=== PATIENT | male | born 1970 | race American Indian/Alaskan Native ===

== ENCOUNTER 2024-10-24 00:02 | Emergency (ER) | payer OTHER ==
--- OUTSIDE RECORDS SUMMARY | 2024-10-24 00:09 | XMS REPORT | Continuity of Care Document ---
Author Name Unknown Address [address] [place] [address] [facility] Address [address] [place] [address] Care Team Providers Care Medical Staff Services Coordinator Name Role Phone Monster Radford DO Primary Care Physician [phone] NINA ZAMORA Attending Clinician Unavailable MONSTER RADFORD Attending Clinician Unavailable JORGE WINKLER Attending Clinician Unaallison Winkler MD, Jorge Baldwin Attending Clinician + SHAWN BUSTAMANTE Attending Clinician UnavailRACHAEL Fritz Attending Clinician Unavailable MD MARIELA Attending Clinician Unavailab le LAB90 Attending Clinician Unavailable ELIZABETHPAXTON FARFAN-ANTHONY Attending Clinician Unavailable Gian RAMIREZ, Carolina Chowdary Attending Clinician Unavail able DHARMESH HARTMANN Attending Clinician Unavailable Essie Beaver MD Attending Clinician [phone] Dharmesh Hartmann MD Attending Clinician [phone] Attending Clinician Unavailable SONNY VENTURA Attending Clinician Unavailable PRINCE ESPINOZA Attending Clinician Jessica SILVANA Garrett Attending Clinician Unavailable Hayley Attending Clinician Unavailable Romel ARCHIBALD, Amy Wei Attending Clinician [phone] DHARMESH HARTMANN Admitting Clinician Unavailable Dharmesh Hartmann MD Admitting Clinician [phone] Hayley Admitting Clinician Unavailable Payers Payer Name Policy Type Policy Number Effective Date Expirati on Date Source UBALDO Myles [facility] 94 [id number] 2024 00:00:00 BE Olivas MAYRA MONTGOMERY COMM [id number] 2024 00:00:00 [employer] [facility] [id number] Problems Condition Name Condition Details Condition Category Status Onset Date Resolution Date Last Treatment Date Treating Clinician Comments Source Testicular infarct Testicular infarct Disease Active 2022-07 00:00: 00 [facility] Pain in right testicle Pain in right testicle Disease Active 2022-07 00:00: 00 [facility] Prediabete s Prediabete s Disease Active 5-03 00:00: 00 Mayra Seybold - Externa l RLS (restless legs syndrome) RLS (restless legs syndrome) Disease Active 4-05 00:00: 00 Mayra Seybold - Externa l DDD (degenerat lori disc disease), cervical DDD (degenerat lori disc disease), cervical Disease Active 3-15 00:00: 00 Mayra Seybold - Externa l Neck pain Neck pain Disease Active 2-15 00:00: 00 Mayra Seybold - Externa l Snoring Snoring Disease Active 2-15 00:00: 00 Mayra Seybold - Externa l Seasonal allergic rhinitis due to pollen Seasonal allergic rhinitis due to pollen Disease Active 2-15 00:00: 00 Mayra Seybold - Externa l Acute bilateral low back pain without sciatica Acute bilateral low back pain without sciatica Disease Active 2-15 00:00: 00 Mayra Seybold - Externa l No known active problems No known active problems Disease [facility] Allergies, Adverse Reactions, Alerts Allergy Name Allergy Type Status Severity Reaction(s) Onset Date Inactive Date Treating Clinician Comments Source NO KNOWN ALLERGIE S Drug Class Active [facility] Social History Social Habit Start Date Stop Date Quantity Comments Source Gender identity 2023-10-17 15:40:59 Identifies as male gender (finding) [facility] Exposure to SARS-CoV-2 (event) Not sure [facility] History of Occupation Mayra Montgomery - External History of tobacco use Smokes tobacco daily [facility] Sexual orientation [facility] Alcoholic beverage intake 2024-10-17 00:00:00 2024-10-17 00:00:00 Ex-drinker (finding) Mayra Montgomery - External Cigarettes smoked current (pack per day) - Reported 2024-07-04 00:00:00 2024-07-04 00:00:00 Mayra Montgomery - External Cigarette pack-years 2024-07-04 00:00:00 2024-07-04 00:00:00 Mayra Montgomery - External Tobacco use and exposure 2024-07-04 00:00:00 2024-07-04 00:00:00 Smokeless tobacco non-user Mayra Montgomery - External Alcohol intake 2023-08-05 00:00:00 2023-08-05 00:00:00 Ex-drinker (finding) Mayra Montgomery - External History of Social function 2023-06-23 00:00:00 2023-06-23 00:00:00 [facility] Education 2022-09-10 00:00:00 2022-09-10 00:00:00 16 Mayra Montgomery - External Sex 2022-07-24 16:03:44 2022-07-24 16:03:44 Male (finding) Mayra Montgomery - External Sex assigned at 1970 00:00:00 1970 00:00:00 Mayra Montgomery - External Smoking Status Start Date Stop Date Source Smokes tobacco daily 2024-07-04 00:00:00 Mayra Montgomery - External Tobacco smoking consumption unknown [facility] Medications Ordered Medication Name Filled Medication Name Start Date Stop Date Current Medication? Ordering Clinician Indication Dosage Frequency Signature (SIG) Comments Components Source Gabapentin 600 MG oral Tablet 10-17 00:00: 00 Yes [id number] 600mg Q.5D Take 1 tablet (600 mg total) by mouth 2 times daily. Mayra Olivas Externa l Etodolac 400 MG oral Tablet 09-30 00:00: 00 Yes 400mg Q.5D Take 1 tablet (400 mg total) by mouth 2 times daily as needed. Mayra chowdary cyclobenzap rine (Flexeril) 10 MG tablet cyclobenzap rine (Flexeril) 10 MG tablet 09-30 00:00: 00 Yes 10mg Q.5D Take 1 tablet by mouth 2 times a day as needed for muscle spasms. Angy Car topiramate (Topamax) 50 MG tablet topiramate (Topamax) 50 MG tablet 09-23 00:00: 00 Yes 50mg Q12H Take 1 tablet by mouth in the morning and 1 tablet in the evening. Angy Car Pregabalin (Lyrica) 100 MG oral Capsule 09-07 00:00: 00 10-17 00:00 :00 No [id number] 100mg Q.5D Take 1 capsule (100 mg total) by mouth 2 times daily No driving. No alcohol. No operating machinery. . Mayra chowdary methylPREDN ISolone (Medrol) 4 MG oral Tablet Therapy Pack 2023-07 00:00: 00 Yes [id number] Take is instructed on pack. Mayra chowdary Gabapentin 300 MG oral Capsule 2023-07 00:00: 00 09-07 00:00 :00 No [id number] 300mg Take 1 capsule (300 mg total) by mouth at bedtime. Mayra chowdary Gabapentin 100 MG oral Capsule 2023-07 00:00: 00 Yes [id number] 100mg Q.5D Take 1 capsule (100 mg total) by mouth 2 times daily as needed (pain). Mayra chowdary Diclofenac Sodium 50 MG oral Tablet Delayed Response 2023-07 00:00: 00 Yes [id number] 50mg Q.5D Take 1 tablet (50 mg total) by mouth 2 times daily as needed (pain). Mayra chowdary Methocarbam ol 750 MG oral Tablet 2023-07 00:00: 00 Yes [id number] 750mg QD Take 1 tablet (750 mg total) by mouth daily as needed (muscle cramp). Mayra chowdary dexAMETHaso ne (DECADRON) 4 MG oral tablet 2023-07 2-03 00:00: 00 07-04 00:00 :00 No Mayra chowdary HYDROcodone -Acetaminop hen (NORCO) 5-325 MG oral Tablet 2023-07 00:00: 00 07-04 00:00 :00 No Mayra chowdary Ibuprofen (MOTRIN) 800 MG oral Tablet 2023-07 00:00: 00 07-04 00:00 :00 No Mayra chowdary Fexofenadin e (GALDYS) 180 MG oral Tablet 02-14 00:00: 00 07-04 00:00 :00 No [id number] 180mg QD Take 1 tablet (180 mg total) by mouth daily. Mayra chowdary hydrOXYzine HCl 25 MG oral Tablet 02-14 00:00: 00 03-17 04:59 :00 No [id number] 25mg Q.25D Take 1 tablet (25 mg total) by mouth every 6 hours as needed for itching. Mayra chowdary enoxaparin (LOVENOX) injection 40 mg 2022-07 15:00: 00 Yes 40mg 40 mg, Subcutaneo us, DAILY, First dose on Thu06/23/23 at 0900, Until Discontinu ed, Routine [facility] ibuprofen 200 mg tablet 2022-07 12:52: 23 Yes 200mg Take 1 tablet by mouth every 6 (six) hours as needed for Pain (scale 4-6). Takes 2 tablets [facility] naproxen (NAPROSYN) tablet 500 mg 2022-07 11:30: 00 06-23 10:35 :00 No 500mg 500 mg, Oral, ONCE, 1 dose, On Thu06/23/23 at 0530, Routine [facility] nicotine (NICODERM) 14 mg/24 hr patch 1 Patch 2022-07 03:00: 00 Yes 1{patch } 1 Patch, Topical, Administer over 24 Hours, Q24H, First dose on Thu06/22/23 at 2100, Until Discontinu ed, Routine [facility] NaCl 0.9% (NS) IV infusion 1,000 mL 2022-07 01:30: 00 Yes 1000mL at 100 mL/hr, IV Infusion, CONTINUOUS , Starting on Thu06/22/23 at 1930, Until Discontinu ed, Routine [facility] ondansetron (ZOFRAN (PF)) injection 4 mg 2022-07 01:27: 12 Yes 4mg 4 mg, Slow IV Push, Q6HPRN, Starting on Thu06/22/23 at 1927, Until Discontinu ed, Routine, Nausea and Vomiting (N/V) [facility] morpHINE (4 mg/mL) injection 4 mg 2022-07 01:27: 10 06-24 01:26 :10 No 4mg 4 mg, Slow IV Push, Q4HPRN, Starting on Thu06/22/23 at 1927, Until Thu06/23/23 at 1926, Routine, Pain (scale 7-10) [facility] acetaminoph en-codeine (TYLENOL #3) 300-30 mg tablet 1 tablet 2022-07 01:27: 08 06-25 01:26 :08 No 1{tbl} 1 tablet, Oral, Q6HPRN, Starting on Thu06/22/23 at 1927, Until Thu06/24/23 at 192, Routine, Pain (scale 4-6) [facility] acetaminoph en (TYLENOL) tablet 650 mg 2022-07 01:27: 07 Yes 650mg 650 mg, Oral, Q6HPRN, Starting on Thu06/22/23 at 1927, Until Discontinu ed, Routine, Pain (scale 1-3) [facility] sulfamethox azole-trime thoprim (BACTRIM DS) 800-160 mg per tablet 2022-07 00:00: 00 07-04 05:59 :00 No [id number] 1{tbl} Take 1 tablet by mouth in the morning and 1 tablet in the evening. Do all this for 10 days. [facility] cefTRIAXone (ROCEPHIN) 1,000 mg in NaCl 0.9% (NS) 100 mL MINI-BAG 2022-07 22:15: 00 06-22 23:50 :00 No 1000mg 1,000 mg, IV Piggyback, ONCE, 1 dose, On Thu06/22/23 at 1615, Administer over 30 Minutes, 100 mL
Reas on for Anti-Infec tive: Empiric Therapy for Suspected Infection< br>Empiric Therapy Site: Urine
D uration of therapy: Once (ED) [facility] iopamidol (ISOVUE 370-500 mL) injection 75 mL 2022-07 20:45: 00 06-22 20:45 :00 No [id number] 75mL 75 mL, Intravenou s, ONCE, 1 dose, On Thu06/22/23 at 1445, Routine [facility] Tizanidine HCl 2 MG oral Tablet -14 00:00: 00 07-04 00:00 :00 No [id number] 2mg QD Take 1 tablet (2 mg total) by mouth nightly as needed for muscle spasms Mayra Montgomery - Externa l Diclofenac Sodium 75 MG oral Tablet Delayed Response -14 00:00: 00 07-04 00:00 :00 No [id number] 75mg Q.5D Take 1 tablet (75 mg total) by mouth 2 times daily as needed Mayra Montgomery - Externa l Gabapentin 100 MG oral Capsule 4-05 00:00: 00 Yes [id number] 100mg Q.5D Take 1 capsule (100 mg total) by mouth 2 times daily as needed Mayra Montgomery - Externa l Meloxicam 15 MG oral Tablet 3-15 00:00: 00 Yes [id number] 15mg QD Take 1 tablet (15 mg total) by mouth daily as needed for pain Mayra Montgomery - Externa l Loratadine (Claritin Reditabs) 10 MG oral TABLET DISPERSIBLE 2-15 00:00: 00 07-04 00:00 :00 No [id number] 10mg QD Take 1 tablet (10 mg total) by mouth daily Mayra chowdary FLUTICASONE PROPIONATE, NASAL, 50 MCG/ACT nasal Suspension 09-10 00:00: 00 07-04 00:00 :00 No [id number] 50ug QD Use 1 spray (50 mcg total) in each nostril daily Mayra chowdary Sildenafil Citrate (Viagra) 25 MG oral Tablet 09-10 00:00: 00 07-04 00:00 :00 No [id number] 100mg QD Take 4 tablets (100 mg total) by mouth daily as needed Mayra chowdary methylPREDN ISolone 4 mg tablets 03-03 00:00: 00 Yes [id number] Take by mouth SEE-INSTRU CTIONS. follow package directions [facility] methocarbam oL (ROBAXIN) tablet 1,500 mg 03-02 19:15: 00 03-02 18:13 :00 No 1500mg 1,500 mg, Oral, ONCE, 1 dose, 03/02/21 at 1415, Routine [facility] ketorolac (TORADOL) injection 30 mg 03-02 19:15: 00 03-02 18:13 :00 No 30mg 30 mg, Intramuscu lar, ONCE, 1 dose, 03/02/21 at 1415, [facility]ANE[facility] : AMY URENA [facility] HYDROcodone -acetaminop hen (NORCO) 10-325 mg tablet 1 tablet 03-02 19:15: 00 03-02 18:13 :00 No 1{tbl} 1 tablet, Oral, ONCE, 1 dose, 03/02/21 at 1415, Routine [facility] dexamethaso ne (DECADRON PHOSPHATE) injection 10 mg 03-02 19:15: 00 03-02 18:13 :00 No 10mg 10 mg, Intramuscu lar, ONCE, 1 dose, 03/02/21 at 1415, Routine [facility] naproxen 375 mg tablet 03-02 00:00: 00 03-10 04:59 :00 No [id number] 375mg Take 1 tablet by mouth 3 (three) times daily with meals for 7 days. [facility] traMADoL 50 mg tablet 03-02 00:00: 00 03-10 04:59 :00 No [id number] 50mg Take 1 tablet by mouth every 6 (six) hours as needed for Pain (scale 7-10) for up to 7 days. Indication s: acute pain [facility] methocarbam oL 750 mg tablet 03-02 00:00: 00 03-07 04:59 :00 No [id number] 1500mg Take 2 tablets by mouth 4 (four) times daily for 4 days. [facility] doxycycline hyclate 100 mg capsule 03-02 00:00: 00 03-02 00:00 :00 No 100mg Take 1 capsule by mouth 2 (two) times daily for 12 days. [facility] metroNIDAZO LE 500 mg tablet 03-02 00:00: 00 03-02 00:00 :00 No 500mg Take 1 tablet by mouth 2 (two) times daily for 12 days. [facility] chlorhexidi ne 0.12 % mouthwash 03-02 00:00: 00 03-02 00:00 :00 No 15mL Swish and spit out 15 mL 2 (two) times daily. [facility] pregabalin (Lyrica) 75 MG capsule pregabalin (Lyrica) 75 MG capsule 05 00:00: 00 Yes 75mg 75 mg = 1 cap, PO, Bedtime, 0 Refill(s) Angy Enamorado Epic Bromfed DM 2 mg-30 mg-10 mg/5 mL oral syrup Take 10 mL every 6 hours by oral route for 7 days. Bromfed DM 2 mg-30 mg-10 mg/5 mL oral syrup Take 10 mL every 6 hours by oral route for 7 days. No 10mL Q6H Bromfed DM 2 mg-30 mg-10 mg/5 mL oral syrup Take 10 mL every 6 hours by oral route for 7 days. [facility] nystatin 100,000 unit/mL oral suspension Take 5 mL 4 times a day by oral route. nystatin 100,000 unit/mL oral suspension Take 5 mL 4 times a day by oral route. No 5mL QID nystatin 100,000 unit/mL oral suspension Take 5 mL 4 times a day by oral route. [facility] amoxicillin 875 mg tablet Take 1 tablet every 12 hours by oral route for 10 days. amoxicillin 875 mg tablet Take 1 tablet every 12 hours by oral route for 10 days. No 1 Q12H amoxicilli n 875 mg tablet Take 1 tablet every 12 hours by oral route for 10 days. [facility] Vital Signs Vital Name Observation Time Observation Value Comments S ource Body height 2024-10-17 19:02:00 170.2 cm Shannan ey Seybold - External Body weight 2024-10-17 19:02:00 89.812 kg Shannan ey Seybold - External BMI 2024-10-17 19:02:00 31.01 kg/m2 Shannan ey Seybold - External Body height 2024-09-07 19:23:00 170.2 cm Shannan ey Seybold - External Body weight 2024-09-07 19:23:00 94.348 kg Shannan ey Seybold - External BMI 2024-09-07 19:23:00 32.58 kg/m2 Shannan ey Seybold - External Body height 2024-07-13 14:07:00 170.2 cm Shannan ey Seybold - External Body weight 2024-07-13 14:07:00 93.441 kg Shannan ey Seybold - External BMI 2024-07-13 14:07:00 32.26 kg/m2 Shannan ey Seybold - External Systolic blood pressure 2024-07-04 16:34:00 132 mm[Hg] Mayra Carcamoo ld - External Diastolic blood pressure 2024-07-04 16:34:00 78 mm[Hg] Mayra Kunz ld - External Heart rate 2024-07-04 16:34:00 96 /min Kelse y Seybold - External Body temperature 2024-07-04 16:34:00 36.89 Nahomy Marya Seybold - External Respiratory rate 2024-07-04 16:34:00 18 /min Mayra Seybold - External Body height 2024-07-04 16:34:00 170.2 cm Shannan ey Seybold - External Body weight 2024-07-04 16:34:00 91.627 kg Shannan ey Seybold - External BMI 2024-07-04 16:34:00 31.64 kg/m2 Shannan islas Seybold - External Oxygen saturation in Arterial blood by Pulse oximetry 2024-07-04 16:34:00 98 /min Mayra Lewisybo ld - External Systolic blood pressure 2023-08-05 20:58:00 120 mm[Hg] Mayra Lewisybo ld - External Diastolic blood pressure 2023-08-05 20:58:00 84 mm[Hg] Mayra Lewisybo ld - External Heart rate 2023-08-05 20:58:00 89 /min Rosalba y Seybold - External Body temperature 2023-08-05 20:58:00 36.72 Nahomy Mayra Seybold - External Respiratory rate 2023-08-05 20:58:00 16 /min Mayra Lewisybold - External Body height 2023-08-05 20:58:00 170.2 cm Shannan islas Seybold - External Body weight 2023-08-05 20:58:00 94.439 kg Shannan islas Seybold - External BMI 2023-08-05 20:58:00 32.61 kg/m2 Shannan islas Seybold - External Oxygen saturation in Arterial blood by Pulse oximetry 2023-08-05 20:58:00 97 /min Mayra Lewisybo ld - External Systolic blood pressure 2023-06-23 17:12:00 117 mm[Hg] [facility] Diastolic blood pressure 2023-06-23 17:12:00 80 mm[Hg] [facility] Heart rate 2023-06-23 17:12:00 86 /min [facility] Body temperature 2023-06-23 17:12:00 36.78 Nahomy [facility] Respiratory rate 2023-06-23 17:12:00 18 /min [facility] Oxygen saturation in Arterial blood by Pulse oximetry 2023-06-23 17:12:00 96 /min [facility] Body height 2023-06-22 18:39:00 170.2 cm [facility] Body weight 2023-06-22 18:39:00 81.647 kg [facility] BMI 2023-06-22 18:39:00 28.19 kg/m2 [facility] Systolic blood pressure 2023-02-18 19:44:00 132 mm[Hg] Mayra Seybo ld - External Diastolic blood pressure 2023-02-18 19:44:00 76 mm[Hg] Mayra Seybo ld - External Heart rate 2023-02-18 19:44:00 81 /min Kelse y Seybold - External Body temperature 2023-02-18 19:44:00 36.61 Nahomy Mayra Seybold - External Respiratory rate 2023-02-18 19:44:00 14 /min Mayra Seybold - External Body height 2023-02-18 19:44:00 170.2 cm Shannan ey Seybold - External Body weight 2023-02-18 19:44:00 88.905 kg Shannan ey Seybold - External BMI 2023-02-18 19:44:00 30.70 kg/m2 Shannan ey Seybold - External Oxygen saturation in Arterial blood by Pulse oximetry 2023-02-18 19:44:00 99 /min Mayra Seybo ld - External Systolic blood pressure 2023-02-06 18:40:00 122 mm[Hg] Mayra Seybo ld - External Diastolic blood pressure 2023-02-06 18:40:00 85 mm[Hg] Mayra Seybo ld - External Heart rate 2023-02-06 18:40:00 88 /min Kelse y Seybold - External Body temperature 2023-02-06 18:40:00 36.61 Nahomy Mayra Seybold - External Respiratory rate 2023-02-06 18:40:00 14 /min Mayra Seybold - External Body height 2023-02-06 18:40:00 170.2 cm Shannan ey Seybold - External Body weight 2023-02-06 18:40:00 88.905 kg Shannan ey Seybold - External BMI 2023-02-06 18:40:00 30.70 kg/m2 Shannan ey Seybold - External Oxygen saturation in Arterial blood by Pulse oximetry 2023-02-06 18:40:00 99 /min Mayra Carcamoo ld - External Body weight 2022-11-26 19:45:00 88.905 kg Shannan ey Seybold - External BMI 2022-11-26 19:45:00 30.70 kg/m2 Shannan ey Seybold - External Oxygen saturation in Arterial blood by Pulse oximetry 2022-11-26 19:45:00 99 /min Mayra Seybo ld - External Systolic blood pressure 2022-11-26 19:45:00 118 mm[Hg] Mayra Seybo ld - External Diastolic blood pressure 2022-11-26 19:45:00 84 mm[Hg] Mayra Seybo ld - External Heart rate 2022-11-26 19:45:00 92 /min Kelse y Seybold - External Body temperature 2022-11-26 19:45:00 36.83 Nahomy Mayra Seybold - External Respiratory rate 2022-11-26 19:45:00 14 /min Mayra Seybold - External Body height 2022-11-26 19:45:00 170.2 cm Shannan ey Seybold - External Systolic blood pressure 2022-10-29 19:34:00 119 mm[Hg] Mayra Seybo ld - External Diastolic blood pressure 2022-10-29 19:34:00 70 mm[Hg] Mayra Seybo ld - External Heart rate 2022-10-29 19:34:00 83 /min Kelse y Seybold - External Body temperature 2022-10-29 19:34:00 36.39 Nahomy Mayra Seybold - External Respiratory rate 2022-10-29 19:34:00 14 /min Mayra Seybold - External Body height 2022-10-29 19:34:00 170.2 cm Shannan ey Seybold - External Body weight 2022-10-29 19:34:00 88.905 kg Shannan ey Seybold - External BMI 2022-10-29 19:34:00 30.70 kg/m2 Shannan ey Seybold - External Oxygen saturation in Arterial blood by Pulse oximetry 2022-10-29 19:34:00 99 /min Mayra Seybo ld - External Systolic blood pressure 2022-10-08 19:30:00 118 mm[Hg] Mayra Seybo ld - External Diastolic blood pressure 2022-10-08 19:30:00 76 mm[Hg] Mayra Seybo ld - External Heart rate 2022-10-08 19:30:00 98 /min Kelse y Seybold - External Body temperature 2022-10-08 19:30:00 36.39 Nahomy Mayra Seybold - External Respiratory rate 2022-10-08 19:30:00 14 /min Mayra Seybold - External Body height 2022-10-08 19:30:00 170.2 cm Shannan ey Seybold - External Body weight 2022-10-08 19:30:00 92.987 kg Shannan ey Seybold - External BMI 2022-10-08 19:30:00 32.11 kg/m2 Shannan ey Seybold - External Systolic blood pressure 2022-09-10 20:44:00 132 mm[Hg] Mayra Seybo ld - External Diastolic blood pressure 2022-09-10 20:44:00 85 mm[Hg] Mayra Seybo ld - External Heart rate 2022-09-10 20:44:00 86 /min Kelse y Seybold - External Body temperature 2022-09-10 20:44:00 36.61 Nahomy Mayra Seybold - External Respiratory rate 2022-09-10 20:44:00 14 /min Mayra Seybold - External Body height 2022-09-10 20:44:00 170.2 cm Shannan ey Seybold - External Body weight 2022-09-10 20:44:00 121.564 kg Shannan ey Seybold - External BMI 2022-09-10 20:44:00 41.97 kg/m2 Shannan ey Seybold - External Oxygen saturation in Arterial blood by Pulse oximetry 2022-09-10 20:44:00 99 /min Mayra Seybo ld - External BP Diastolic 2021-10-25 00:00:00 69 mm[Hg] [facility] Height 2021-10-25 00:00:00 68 [in_i] [facility] BMI (Body Mass Index) 2021-10-25 00:00:00 28.7 kg/m2 [facility] BP Systolic 2021-10-25 00:00:00 107 mm[Hg] [facility] Body Weight 2021-10-25 00:00:00 188.8 [lb_av] [facility] Systolic blood pressure 2021-03-02 19:00:00 110 mm[Hg] [facility] Diastolic blood pressure 2021-03-02 19:00:00 84 mm[Hg] [facility] Heart rate 2021-03-02 19:00:00 74 /min [facility] Respiratory rate 2021-03-02 19:00:00 16 /min [facility] Oxygen saturation in Arterial blood by Pulse oximetry 2021-03-02 19:00:00 94 /min [facility] Body temperature 2021-03-02 17:43:00 36.78 Nahomy [facility] Body weight 2021-03-02 17:43:00 90.719 kg [facility] Procedures Procedure Date / Time Performed Performing Clinician Source CBC WITHOUT DIFF 2023-06-23 10:22:00 Dharmesh Hartmann [facility] PROTHROMBIN TIME / INR 2023-06-23 10:22:00 Denver Hartmann [facility] ACTIVATED PARTIAL THRMPLAS DIANE 2023-06-23 10:22:00 Dharmesh Hartmann [facility] CT ABDOMEN PELVIS W CONTRAST 2023-06-22 19:49:50 Jigar Bennett [facility] US SCROTUM AND CONTENTS 2023-06-22 19:35:00 Elzbieta Bennett [facility] COMP. METABOLIC PANEL ([id number]) 2023-06-22 18:59:00 Jigar Bennett [facility] CBC WITH DIFF 2023-06-22 18:59:00 Jigar Bennett [facility] URINALYSIS 2023-06-22 18:59:00 [facility] CONSENT/REFUSAL FOR DIAGNOSIS AND TREATMENT 2023-06-22 18:31:32 Doctor Unassigned, [place] [facility] XR LUMBAR SPINE 2 VW 2021-03-02 18:49:55 Angella Urena [facility] NOTICE OF PRIVACY PRACTICES 2021-03-02 17:37:20 Doctor Unassigned, [place] [facility] CONSENT/REFUSAL FOR DIAGNOSIS AND TREATMENT 2021-03-02 17:32:16 Doctor Unassigned, [place] [facility] Encounters Start Date/Time End Date/Time Encounter Type Admission Type Attending [facility] Facility Care Department Encounter ID Source 2024-11-21 11:30:00 2024-11-21 11:30:00 Outpatient NINA ZAMORA [id number] [facility] 2024-10-20 00:00:00 2024-10-20 00:00:00 Outpatient MONSTER RADFORD [id number] [facility] [place] 2024-10-19 12:46:45 2024-10-19 12:46:45 Outpatient Elective JORGE WINKLER IEEPIC IEEPIC [id number] Angy chowdary Fei [facility] 2024-10-19 00:00:00 2024-10-19 00:00:00 Outpatient MONSTER RADFORD [id number] [facility] [place] 2024-10-17 14:00:00 2024-10-17 14:00:00 Outpatient ONAHNINA MAYRA HORAN [id number] [facility] [place] 2024-10-05 13:24:52 2024-10-05 15:08:20 Procedure Visit Elective LASHAE VEDAMED [facility] 1.2.840.114 350.1.13.70 8.2.7.2.686 [id number] Angy chowdary [facility] 2024-10-03 00:00:00 2024-10-03 00:00:00 Outpatient MAYRA HORAN [id number] [facility] [place] 2024-09-26 13:22:47 2024-09-26 14:08:33 Procedure Visit Elective SEWIELMICHEL AHMED [facility] 1.2.840.114 350.1.13.70 8.2.7.2.686 [id number] Angy Enamorado [facility] 2024-09-26 00:00:00 2024-09-26 00:00:00 Outpatient MAYRA HORAN [id number] [facility] [place] 2024-09-23 10:45:00 2024-09-23 11:22:03 [facility] 1.2.840.114 350.1.13.70 8.2.7.2.686 [id number] Angy Enamorado [facility] 2024-09-21 10:00:00 2024-09-21 10:00:00 Outpatient SHAWN BUSTAMANTE [id number] [facility] [place] 2024-09-20 00:00:00 2024-09-20 00:00:00 Outpatient MONSTER RADFORD [id number] [facility] [place] 2024-09-19 00:00:00 2024-09-19 00:00:00 Outpatient MAYRA HORAN [id number] [facility] 2024-09-16 14:45:00 2024-09-16 14:45:00 Outpatient MONSTER RADFORD [id number] [facility] [place] 2024-09-16 00:00:00 2024-09-16 00:00:00 Outpatient MONSTER RADFORD [id number] [facility] [place] 2024-09-13 16:15:00 2024-09-13 16:15:00 Outpatient MAYRA HORAN [id number] [facility] 2024-09-12 00:00:00 2024-09-12 00:00:00 Outpatient MAYRA HORAN [id number] [facility] 2024-09-09 00:00:00 2024-09-09 00:00:00 Outpatient MONSTER RADFORD [id number] [facility] 2024-09-07 13:45:00 2024-09-07 13:45:00 Outpatient NINA ZAMORA [id number] [facility] 2024-08-17 15:30:00 2024-08-17 15:30:00 Outpatient MONSTER RADFORD MAYRA HORAN [id number] [facility] 2024-07-22 00:00:00 2024-07-22 00:00:00 Outpatient RACHAEL BLOOD MAYRA HORAN [id number] [facility] 2024-07-18 00:00:00 2024-07-18 00:00:00 Outpatient MD MAYRA HADDAD [id number] [facility] 2024-07-15 00:00:00 2024-07-15 00:00:00 Outpatient MAYRA HORAN [id number] [facility] 2024-07-13 08:00:00 2024-07-13 08:00:00 Outpatient APRIL ZAMORAE MAYRA HORAN [id number] [facility] 2024-07-13 00:00:00 2024-07-13 00:00:00 Outpatient NOAH NINA MAYRA HORAN [id number] [facility] 2024-07-04 11:20:00 2024-07-04 11:20:00 Outpatient BEN MAYRA HORAN [id number] [facility] 2024-07-04 10:45:00 2024-07-04 10:45:00 Outpatient MONSTER RADFORD MAYRA HORAN [id number] [facility] 2024-03-25 14:15:00 2024-03-25 14:15:00 Outpatient MONSTER RADFORD MAYRA HORAN [id number] [facility] 2024-02-15 16:00:00 2024-02-15 16:00:00 Outpatient ANYI ELIZABETH MAYRA HORAN [id number] [facility] 2023-09-10 16:30:00 2023-09-10 16:30:00 Outpatient MAYRA HORAN [id number] [facility] 2023-09-10 16:00:00 2023-09-10 16:00:00 Outpatient MAYRA HORAN [id number] [facility] 2023-08-05 14:45:00 2023-08-05 14:45:00 Outpatient RACHAEL BLOOD [facility] HOR[facility] [id number] [facility] 2023-08-05 09:45:00 2023-08-05 09:45:00 Outpatient RACHAEL BLOOD [facility] [id number] [facility] 2023-06-24 00:00:00 2023-06-24 00:00:00 Transition of Care Carolina Springer 1.2.840.114 350.1.13.10 4.2.7.2.686 [id number] [facility] 2023-06-22 12:36:00 2023-06-23 12:52:00 Inpatient X [facility] [id number] [facility] 2023-06-22 12:36:00 2023-06-23 12:52:00 Hospital Encounter Essie Beaver [facility] ([facility] 1.2.840.114 350.1.13.10 4.2.7.2.686 [id number] [facility] 2023-05-06 15:15:00 2023-05-06 15:15:00 Outpatient [facility]ORA [id number] [facility] 2023-04-11 09:20:00 2023-04-11 09:20:00 Outpatient STEPHANY HORAN [id number] [facility] 2023-03-27 16:00:00 2023-03-27 16:00:00 Outpatient SONNY VENTURA [id number] [facility] 2023-03-18 00:00:00 2023-03-18 00:00:00 Outpatient MONSTER RADFORD [id number] [facility] 2023-03-17 14:00:00 2023-03-17 14:00:00 Outpatient MONSTER RADFORD [id number] [facility] [place] 2023-02-28 00:00:00 2023-02-28 00:00:00 Outpatient PREZAS, MONSTER HORAN MAYRA [id number] [facility] 2023-02-23 00:00:00 2023-02-23 00:00:00 Outpatient PREZAS, MONSTER HORAN MAYRA [id number] [facility] 2023-02-23 00:00:00 2023-02-23 00:00:00 Outpatient VENTURA, SONNY MAYRA MAYRA [id number] [facility] 2023-02-18 15:00:00 2023-02-18 15:00:00 Outpatient PREZAS, MONSTER MAYRA MAYRA [id number] [facility] 2023-02-06 14:00:00 2023-02-06 14:00:00 Outpatient PREZAS, MONSTER MAYRA MAYRA [id number] [facility] 2022-11-26 15:30:00 2022-11-26 15:30:00 Outpatient PREZAS, MONSTER MAYRA HORAN [id number] [facility] 2022-10-29 15:00:00 2022-10-29 15:00:00 Outpatient PREZAS, MONSTER MAYRA HORAN [id number] [facility] 2022-10-28 09:30:00 2022-10-28 09:30:00 Outpatient EAST, PRINCE MAYRA HORAN [id number] [facility] 2022-10-09 00:00:00 2022-10-09 00:00:00 Outpatient ARELLANO, SILVANA MAYRA HORAN [id number] [facility] 2022-10-08 14:45:00 2022-10-08 14:45:00 Outpatient PREZAS, MONSTER MAYRA HORAN [id number] [facility] 2022-10-06 00:00:00 2022-10-06 00:00:00 Outpatient PREZAS, MONSTER MAYRA HORAN [id number] [facility] 2022-10-04 08:15:00 2022-10-04 08:15:00 Outpatient LABMelinda HORAN [id number] [facility] 2022-09-18 00:00:2022-09-18 00:00:00 Outpatient PREZAS, MONSTER HORAN [id number] [facility] 2022-09-17 00:00:00 2022-09-17 00:00:00 Outpatient PREZAS, MONSTER HORAN [id number] [facility] 2022-09-16 15:30:00 2022-09-16 15:30:00 Outpatient MAYRA HORAN [id number] [facility] 2022-09-16 15:25:00 2022-09-16 15:25:00 Outpatient MAYRA HORAN [id number] [facility] 2022-09-10 14:45:00 2022-09-10 14:45:00 Outpatient PREZAS, MONSTER HORAN [id number] [facility] 2022-09-10 00:00:00 2022-09-10 00:00:00 Outpatient PREZAS, MONSTER HORAN [id number] [facility] 2021-10-25 07:31:00 2021-10-25 07:31:00 Outpatient Heath_Joaquín VFP VFP [id number] [facility] e 2021-10-25 00:00:00 2021-10-25 00:00:00 Lexus Joe, CURB[employer] SETTER: [address], [address], [place] [address] , Ph. VFP [place] - [facility] - _HOU_NSeth Nice ([facility] [id number] [facility] Pract[facility] e 2021-03-02 12:45:00 2021-03-02 15:43:00 Emergency Drever, Amy G [facility] 1.2.840.114 350.1.13.10 4.2.7.2.686 [id number] [facility] 2021-03-02 12:31:00 2021-03-02 12:31:00 Emergency X [facility] ERT [id number] [facility] Results Test Description Test Time Test Comments Results Result Co mments Source [facility] 10:48:57* Test Item Value Reference Range Interpretation Comme nts APTT Patient (test code = 3173-2) 35 See_Comment [Automated messa ge] The system which generated this result transmitted reference range: 26 - 36 Seconds. The reference range was not used to interpret this result as normal/abnormal. Lab Interpretation (test code = 35709-1) Normal [facility] WITHOUT [id number] 10:45:20* Test Item Value Reference Range Interpretation Comme nts WBC (test code = 6690-2) 11.25 See_Comment H [Automated message] The system which generated this result transmitted reference range: 4.20 - 10.70 10*3/?L. The reference range was not used to interpret this result as normal/abnormal. RBC (test code = 789-8) 4.82 See_Comment [Automated message] The system which generated this result transmitted reference range: 4.26 - 5.52 10*6/?L. The reference range was not used to interpret this result as normal/abnormal. HGB (test code = 718-7) 14.5 g/dL 12.2-16.4 HCT (test code = 4544-3) 42.4 % 38.4-49.3 MCH (test code = 785-6) 30.1 pg 26.1-32.7 MCV (test code = 787-2) 88.0 fL 81.7-95.6 MCHC (test code = 786-4) 34.2 g/dL 31.2-35.0 PLT (test code = 777-3) 225 See_Comment [Automated message] The system which generated this result transmitted reference range: 150 - 328 10*3/?L. The reference range was not used to interpret this result as normal/abnormal. MPV (test code = 37679-7) 11.5 fL 9.8-13.0 RDW-CV (test code = 788-0) 13.3 % 12.1-15.4 RDW-SD (test code = 98982-5) 43.1 fL 38.5-51.6 NRBC x10^3 (test code = 6390361551) See_Comment [Automated messa ge] The system which generated this result transmitted reference range: 10*3/?L. The reference range was not used to interpret this result as normal/abnormal. NRBC/100 WBC (test code = 5042019821) 0.0 See_Comment [Automated [employer]] The system which generated this result transmitted reference range: 0.0 - 10.0 /100 WBCs. The reference range was not used to interpret this result as normal/abnormal. IPF % (test code = 7641502101) Lab Interpretation (test code = 41404-9) Abnormal [facility] WITH [id number] 20:00:25* Test Item Value Reference Range Interpretation Comme nts WBC (test code = 6690-2) 16.33 See_Comment H [Automated [employer]] The system which generated this result transmitted reference range: 4.20 - 10.70 10*3/?L. The reference range was not used to interpret this result as normal/abnormal. RBC (test code = 789-8) 4.85 See_Comment [Automated [employer]] The system which generated this result transmitted reference range: 4.26 - 5.52 10*6/?L. The reference range was not used to interpret this result as normal/abnormal. HGB (test code = 718-7) 14.9 g/dL 12.2-16.4 HCT (test code = 4544-3) 43.5 % 38.4-49.3 MCV (test code = 787-2) 89.7 fL 81.7-95.6 MCH (test code = 785-6) 30.7 pg 26.1-32.7 MCHC (test code = 786-4) 34.3 g/dL 31.2-35.0 RDW-SD (test code = 46225-1) 43.4 fL 38.5-51.6 RDW-CV (test code = 788-0) 13.2 % 12.1-15.4 PLT (test code = 777-3) 242 See_Comment [Automated [employer]] The system which generated this result transmitted reference range: 150 - 328 10*3/?L. The reference range was not used to interpret this result as normal/abnormal. MPV (test code = 05399-5) 12.1 fL 9.8-13.0 NRBC/100 WBC (test code = 4912541593) 0.0 See_Comment [Automated me ssage] The system which generated this result transmitted reference range: 0.0 - 10.0 /100 WBCs. The reference range was not used to interpret this result as normal/abnormal. NRBC x10^3 (test code = 1996243361) See_Comment [Automated messa ge] The system which generated this result transmitted reference range: 10*3/?L. The reference range was not used to interpret this result as normal/abnormal. GRAN MAT (NEUT) % (test code = 770-8) 59.2 % IMM GRAN % (test code = 5725087184) 0.40 % LYMPH % (test code = 736-9) 23.1 % MONO % (test code = 5905-5) 14.8 % EOS % (test code = 713-8) 1.8 % BASO % (test code = 706-2) 0.7 % GRAN MAT x10^3(ANC) (test code = 0929619788) 9.67 10*3/uL 1.99-6.95 H IMM GRAN x10^3 (test code = 3901825014) 0.06 10*3/uL 0.00-0.06 LYMPH x10^3 (test code = 731-0) 3.77 10*3/uL 1.09-3.23 H MONO x10^3 (test code = 742-7) 2.42 10*3/uL 0.36-1.02 H EOS x10^3 (test code = 711-2) 0.29 10*3/uL 0.06-0.53 BASO x10^3 (test code = 704-7) 0.12 10*3/uL 0.01-0.09 H REACT LYMPHS (test code = 1533716351) Rare GIANT PLATELETS (test code = 5908-9) Present See_Comment A [Automated messa ge] The system which generated this result transmitted reference range: (none). The reference range was not used to interpret this result as normal/abnormal. PLT SATELLITISM (test code = 3576837629) Present See_Comment A [Automated me ssage] The system which generated this result transmitted reference range: (none). The reference range was not used to interpret this result as normal/abnormal. Lab Interpretation (test code = 84527-6) Abnormal [facility] (26086)2023-06-22 19:44:52* Test Item Value Reference Range Interpretation Comme nts NA (test code = 4742809295) 138 mmol/L 135-145 K (test code = 4579765999) 3.8 mmol/L 3.5-5.0 CL (test code = 4521670101) 103 mmol/L 98-108 CO2 TOTAL (test code = 7270034214) 27 mmol/L 23-31 AGAP (test code = 4246518284) 8 2-16 BUN (test code = 0540644233) 13 mg/dL 7-23 GLUCOSE (test code = 0499738308) 117 mg/dL 70-110 H CREATININE (test code = 0644578067) 0.73 mg/dL 0.60-1.25 TOTAL BILI (test code = 3240894221) 0.7 mg/dL 0.1-1.1 CALCIUM (test code = 7967133729) 9.2 mg/dL 8.6-10.6 T PROTEIN (test code = 6863136108) 7.9 g/dL 6.3-8.2 ALBUMIN (test code = 8068777544) 4.3 g/dL 3.5-5.0 ALK PHOS (test code = 7565994518) 97 U/L 34-122 ALTv (test code = 1742-6) 28 U/L 5-50 AST(SGOT) (test code = 0122080819) 27 U/L 13-40 eGFR (test code = 92396-0) 109.5 mL/min/1.73m2 CKD-EPI eGFR (2020). Assuming creatinine has been stable day-to-day for at least three months, the eGFR indicates Category G1 (>= 90 mL/min/1.73 m2) Lab Interpretation (test code = 17795-7) Abnormal [facility] L[facility] 2 [id number] 19:18:49Of the visualized spine, there is no evidence for fracture or subluxation. Indication: pain post lifting ? Comparison: None RL: 4209 ORDERING PHYSICIAN: XAVIER ?ROMEL TECHNIQUE: 2 radiographs including frontal and lateral views of the lumbarspine were obtained. FINDINGS: There are no fractures or subluxations. Vertebral body heights aremaintained. There is a prominent inferiorprojecting osteophytes at the inferior plate of the L3 vertebral body. Mildmultilevel anterior disc osteophytes. The paravertebral soft tissues are unremarkable. [facility], Radiant Results Inft User - 03/02/2021 2:19 PM CDT Indication: pain post lifting Comparison: NoneRL: 4209ORDERING PHYSICIAN: AMY URENA TECHNIQUE: 2 radiographs including frontal and lateral views of the lumbarspine were obtained. FINDINGS: There are no fractures or subluxations.Vertebral body heights are maintained. There jr prominent inferiorprojecting osteophytes at the inferior plate of the L3 vertebral body. Mildmultilevel anterior disc osteophytes.The paravertebral soft tissues are unremarkable.IMPRESSION Of the visualized spine, there is no evidence for fracture or subluxation. [facility] Notes Date/Time Note Provider Source Referral ID Status Reason Start Date Expiration Date Visits Re quested Visits Authorized [id number] [facility]* Jorge Winkler MD - 10/05/2024 1:15 PM CDT Images from the original note were not included. NEW CONSULT PATIENT NAME: Merna Hernandez MRN NUMBER: [id number] VISIT DATE: Saturday October 05, 2024 ASSESSMENT Diagnosis Plan1. Lumbar radiculitis 2. Herniated lumbar intervertebral disc 3. Facet arthritis of lumbosacral region Blood Thinners: None PLAN Pt not indicated Psych referral PT: yes, failed SURGERY: no MEDS:Opioids: opiods: NOT taking opiates Anti-epileptic drugs: Muscle Relaxant: NSAIDs (OTC or Rx): yes, failed Other: INJECTION HISTORY: no TODAY: Continue meds as deemed necessary per PCPPt declined spine surgery consult Pt declined Physical therapy Continue Topamax 50mg 1 PO q 12 Continue Lodine and Flexeril 50% relief with Left S1 TF ARIA x 1 09/23/24 No adverse events still in severe pain and inability to function w ADLS. Procedure done today : left TF Lumbar S1 CPT 91851 M54.16, M51.26Risk, side effects and benefits discussed with pt stop all NSAIDs and ASA Explained of the procedure to be performed. Risks and side effects discussed with pt Patient aware of all side effects and complications related to procedure to be performed including infection, bleeding, trauma to an internal structure including the spinal cord, causing any form of paralysis to any of the 4 extremities, pneumothorax, dural puncture CLEMENTS, aseptic and septic meningitis or sudden seizures vs related to intravascular injection of particulate substances. Medications list that conflict with the procedure given. OPERATIVE REPORT PATIENT NAME: Merna Hernandez MRN NUMBER: [id number] DATE OF SURGERY: Saturday October 05, 2024 PREOPERATIVE DIAGNOSIS: HNP wo myelopathyLumbar radiculitis Lumbar DDD Chronic lbp Lumbar facet joint dz POSTOPERATIVE DIAGNOSIS: Same as Preoperative Diagnosis OPERATION PERFORMED: Transforaminal epidural steroid injection, left S1 X-RAY: Fluoroscopy, spine Epidurography ANESTHESIA: Local Anesthesia INDICATIONS: Severe leg pain, Failed to achieve pain relief through conservative medical management, and Decreased ability to perform activities of daily living, sleep, work, and enjoy quality of life. PROCEDURE IN DETAIL: The 54 y.o. male patient was consented and was placed on blood pressure andpulse oximetry monitor. With the patient positioned prone on the fluoroscopic table, the skin was prepped with proper surgical aseptic technique and draped. In the anteroposterior view, the levels to be injected were identified under fluoroscopy. The C-arm was oblique in the coronal plane until the facet joint was delineated, approximately 20 degrees. Lidocaine 1% 4 cc in a 1.25-inch 27-gauge needle was used for skin local anesthesia, injecting it through the skin and subcutaneous tissue under strict aspiration technique. Under fluoroscopic guidance, a 22-gauge, 3.5 inches spinal needle was advanced and directed towards 6 o'clock position of the pedicle. In the lateral view, ideal placement of the needle was obtained with the tip in the upper mid portion of neural foramen. In the anteroposterior plane and under continuous fluoroscopy, approximately 1 cc of non-ionic, water-soluble contrast was injected to visualize the nerve root /corresponding lateral recess and for safety to make sure there was no vascular uptake. After negative aspiration for blood, approximately 2 cc of a mixture of 80mg DepoMedrol and 0.2% of preservative-free ropivicaine was slowly injected at each level. The patient experienced no paresthesia during the injection. Shortly after completion of the injection procedures, the patient reported improvement of pain symptoms. The patient recovered uneventfully. The fluoroscopic image was saved for the patient's medical record. COMPLICATIONS: None BLOOD LOSS: None Dr Jorge Winkler Significant education provided today on diagnosis, conservative management options, injections, and when surgical consultation is indicated. Patient agrees with current plan and management options as described below. Recommend routine physical Continue bowel management Patient instructed to continue with home exercise program. Patient instructed to go to nearest ER if developed any sudden weakness in the extremities or sudden bowel and/or bladder incontinence. Pt's chart and history were reviewed; physical exam have been updated with no significant changes of the above chronic pain noted. Chief complaint or Subjective: Area of pain : lumbar pain, radicular to, left-sided, buttock, calf, and foot What is the duration of your pain? constantly Kind of pain (quality): sharp, burning, pressure-like, electric "shock"-like, throbbing, knife-like, shooting, and pins and needles What makes it worse? nothing, standing, walking, sitting, squatting, lyingdown, sneezing, driving, lifting, heat Do you have any - WEAKNESS LLE (Left Lower Extremity)NUMBNESS LLE (Left Lower Extremity) Changes in pattern of pain or weakness? No Current modalities for pain management: Rest Functional Status: Unable to function with daily activities Routine physical within the past year? YES HISTORY:Merna Hernandez is a male, with PMH of: Lumbar radiculitis and Lumbar degenerative disc disease Complaining of left sciatica x 6 months , with chronic intermittet muscle spasms, a chronic condition Denies any recent bowel or bladder incontinence or rentention, saddle paresthesia, or sexual dysfunction Denies fever, chills, unintentional weight loss or any associated constiutional changes. Denies any suicide thoughts or ideation. Conservative teatments including trial of PT, OTC analgesics, and non opioid medications without relief. has not been evaluated by surgeon (spine, ortho, or neurosurgeon) for consultation. Currently takes:opiods: NOT taking opiates max per day for pain relief. NSAIDs (OTC or Rx): yes, failed Patients are not exibiting side effects from listed medication(s) above.Patient maintains a bowel management regimen of fiber diet, OTC laxatives, or stool softeners. Medication enable pt to function with activities of daily living. As of this visit, pt has been compliant with pain medications with no apparent signs of abuse or misuse of opioid pain medication. 09/23/24 Ref per PCP for Pain Mgt evaluation Here for injection eval 09/26/24 There has been no changes in patient's pain or baseline neurological status since last visit Patient pain has been under fair control with the current multidisciplinary regimen No adverse events caused by the pain medications prescribed or procedures performed No evidence of potential opiate misuse or abuse patient has been compliant with opiate program without any evidence of glenn rant opiate use behavior Patient able to function and perform ADLS with the aid of medication and other multidisciplinary modalities Here for his ARIA left S1 no changes HPI 10/05/24 There has been no changes in patient's pain or baseline neurological status since last visit Patient pain has been under fair control with the current multidisciplinary regimen No adverse events caused by the pain medications prescribed or procedures performed No evidence of potential opiate misuse or abuse patient has been compliant with opiate program without any evidence of glenn rant opiate use behavior Patient able to function and perform ADLS with the aid of medication and other multidisciplinary modalities 50% relief with his first Left S1 TF ARIA x 1 10/18 No adverse events here for repeat ARIA he has started his HEP and overall feels his pain is better but still severe enough to affect his function and ADLS Physical Exam: GENERAL: Not in acute distress, well developed, well nourished HEADNormocephalic, atraumatic Pupils: without miosis or mydriasis CERVICALwithin normal limits ROM Alignment: Blunted lordosis Trigger points: -- trapezius, splenius capitus, paraspinatus UPPER EXTREMITIES Tone: Normal; no muscle atrophyMotor: C5-T1 myotomes bilateral 5/5 SHOULDERROM: full, without pain (active or passive) Supraspinatus stress test: negative WRIST/HAND Heberden's nodules: bilateral THORACIC/LUMBAR ROM decreased Alignment: Blunted lordosis Scoliosis: Absent Trigger points: absent Lumbar scar: none Facet joints tenderness: left Facet loading: left LOWER EXTREMITIES Tone: Normal; no muscle atrophyMotor: Myotomes L3-S1 bilateral 5/5 Straight Leg Raise: left HIP/PELVISROM: Full, internal rotation and external rotation Alignment: normal SACROILIAC JOINTPatrick's: -- PSIS tenderness: -- KNEE ROM: Full Swelling: none ANKLEROM: Full NEUROLOGICALGait: Antalgic PSYCH: Mood: agitation Pain behavior: pain behavior: none Diagnostic studies: Impression IMPRESSION:Disc extrusion displaces the descending left L5 nerve root in the L4-L5 subarticular zone. Additional mild degenerative changes at L3-L4 and L4-L5 as described above. Narrative MRI LUMBAR SPINE WITHOUT CONTRAST HISTORY: Low back pain, symptoms persist with > 6 wks treatment TECHNIQUE: Multiplanar multisequence MR images of the lumbar spine wereobtained without intravenous contrast. Unless otherwise specified, incidental findings do not require dedicated imaging follow-up. COMPARISON: Lumbar spine 3 views 09/16/2022 FINDINGS: For purposes of this dictation, it is assumed that there are 5 nonrib-bearing lumbar type vertebrae, and the most caudal fully segmented lumbar vertebra is labeled L5. The lumbar spine demonstrates normal alignment. Vertebral bodies are normal in height. There is a normal marrow signal pattern. The conus medullaris terminates at a normal level. The nerve roots of the cauda equina appear normal. The included paraspinal soft tissues and retroperitoneal structures are grossly normal. Evaluation of the individual levels: L1-2: Disc is normal in height and signal intensity. No significant spinalcanal or neural foraminal stenosis. L2-3: Disc is normal in height and signal intensity. No significant spinalcanal or neural foraminal stenosis. L3-4: Mild loss of disc height with fatty endplate changes. Circumferentialdisc bulge and facet hypertrophy result in mild right neural foraminal stenosis. No significant spinal canal or left neural foraminal stenosis. L4-5: Moderate loss of disc height. Circumferential disc bulge withsuperimposed 7 mm left paracentral disc protrusion and facet hypertrophy result in mild spinal canal and mild bilateral neural foraminal stenosis. Disc material displaces the descending left L5 nerve root in the subarticular zone. L5-S1: Disc is normal in height and signal intensity. No significant spinalcanal or neural foraminal stenosis. Images on Order [id number] Image Retrieve The full-size image has not yet been retrieved from an outside organization. To retrieve, click the link below. External Radiology and Imaging - Scan on 09/13/2024: MR LUMBAR SPINE W/O CONTRAST *The following may be discussed with patient based on pt's treatment plan: Opiate Risk Tool Scorin-3 Low risk: 6% change of developing problematic behaviors 4-7 Moderate risk: 28% change of developing problematic behaviors >=8 High risk: >90% change of developing problematic behaviors Goals of Therapy: Improve ambulation, quality of life, minimize medications, improve sleep pattern, increase level of activities, return to work, or improve ability to work. Patient understands their responsibility of their involvement to achieve the above goals, better quality of life, better function, and possible pain control. Patient also understands the nature of chronic pain and disease process. Options:Conservative options have been reviewed and discussed in detail. These include additional physical therapy, medication, exercise conditioning, and weight loss. Interventional treatment options include epidural steroid injections, sacroiliac injections, medial branch block, or radiofrequency ablation. The patient has decided to proceed with interventional injection therapy. We discussed the role of surgery consult as well. That decision was deferred at this time. Risks:Risks of conservative treatment were discussed and include progression of the underlying condition, including permanent or increased neurological sequelae. Risks of interventional injection treatment were also reviewed in detail and include , hemorrhage, infection, nerve damage, paralysis, recurrence, worsening or non-resolution of symptoms, dural tear, dural puncture headache, meningitis. No guarantees were given. Certain components of the symptoms may not resolve as a result of interventional injection therapy. Patient is aware that spinal injection with varies types of corticosteroids is not FDA approved. The patient agrees to proceed with this treatment recommendation. Counseling Given:The diagnosis, prognosis, treatment options, risks; alternatives were discussed in detail using language understandable to this patient. Questions have been elicited and all questions have been answered to the patients satisfaction in understandable terms. Realistic reassurance has been given to the patient regarding any fears or anxieties expressed today. Risks, benefits and options of recommended interventional procedures and proposed treatments were discussed. Preoperative instructions were reviewed including the use of anticoagulants. The patient was instructed to call if any change in medical status occurs, including infections which may necessitate schedule changes. Opiate Controlled Substance Therapy Requirements:Urine Drug Screen: Agree to submit to urine and/or blood screening tests to detect the use of non-prescribed medications, inappropriate pain medication, (including alcohol) or illicit drugs at any time. Psychology Clearance: Opiate controlled substance therapy for chronic pain represents a complex problem that may benefit from physical therapy, psychotherapy, and behavioral medicine strategies. Safety: Patient is aware that driving is prohibited while using opiate medications, muscle relaxants, antidepressants, or antiepileptics. Patients are prohibited to use any sedative hypnotics or sleeping aid, benzodiazepines or barbiturates while on medications from the pain clinic. Controlled substance medications should be in a locked, inaccessible to others, including children. The following was discussed with patients given opiate prescriptions: Narcan is used in people of all ages if opioid overdose happens or has possibly happened. (An opioid overdose occurs when someone accidentally or intentionally takes more opioid than their body can safely process.) Narcan is usually given by a caregiver or loved one if they think opioid overdose has occurred. After Narcan has been given, 911 or your local emergency number should be called right away. Administering Narcan is not a substitute for emergency medical care for opioid overdose. Medication therapy of opiate controlled substance, muscle relaxant, antidepressant, antiepileptic, benzodiazepine, tranquilizer, or sedative may cause: 1. Psychological dependence (addiction) to controlled substances that will require participation in any treatment program prescribed at facilities, which may include; - Detoxification and/or - Psychological, and medical treatment 2. multiple side effects include: - respiratory depression or failure that may lead to sudden . - intractable constipation that may cause bowel impaction or obstruction, which may require surgery. - urinary retention that may lead to renal problems - decrease of hormone levels with possible impotence, decreased libido, or sexual dysfunction. - Methadone or various antidepressants may cause heart arrhythmias that may lead to . - withdrawal symptoms such as, abdominal cramps, sweats, chills, generalized aching, and sudden . - sedation caused by medications: opiates (oral, patch, or infusion pump) muscle relaxants, anti-epileptic, benzodiazapines, antidepressants, sedatives, and/or tranquilizers, the drug miller supervisor, recommends not operating ANY machinery or ANY form of motorized equipment (this includes a motor vehicle). - sedation from medications may cause increase risk of falls which requires 24 hrs supervision when starting a new medication. - any other side effects that may require immediate ER medical attention. - Patient is aware the possible of developing seriotonin syndrome while being on various antidepressants or tramadol type medications which may lead to sudden . [id number]:09Upcoming Encounters Health Maintenance Due Date Last Done Comments CT Colonography 1971 Colonoscopy 1971 Colorectal Cancer Screening 1971 FIT-DNA 1971 FIT 1971 FOBT 1971 Lipid Panel 1971 Sigmoidoscopy 1971 Annual Physical 1974 DTaP/Tdap/Td Vaccines (1 - Tdap) 1990 Hepatitis B Vaccines (1 of 3 - 19+ 3-dose series) 1990 Pneumococcal Vaccine: 50+ Ye ars (1 of 2 - PCV) 1990 Pneumococcal Vaccine: Pediat rics (0 to 5 Years) and At-Risk Patients (6 to 64 Years) (1 of 2 - PCV) 1990 Zoster Vaccines (1 of 2) 2021 Influenza Vaccine (#1) 2024 HIB Vaccines Aged Out No longer eligi ble based on patient's age to complete this topic HPV Vaccines Aged Out No longer eligi ble based on patient's age to complete this topic Hepatitis A Vaccines Aged Out No long er eligible based on patient's age to complete this topic IPV Vaccines Aged Out No longer eligi ble based on patient's age to complete this topic Meningococcal Vaccine Aged Out No herbert bryon eligible based on patient's age to complete this topic Rotavirus Vaccines Aged Out No longer eligible based on patient's age to complete this topic [id number] 14:21:09 Diagnosis Lumbar radiculitis - Primary Herniated lumbar intervertebral disc Displacement of lumbar intervertebral disc without myelopathy Facet arthritis of lumbosacr al region [id number] 14:21:09 [id number] 14:04:50* Auth/Cert (Routine) Specialty Diagnoses / Procedures Referred By Adelita t Referred To Contact Diagnoses Radiculopathy, lumbar region Procedures MI NJX AA&/STRD TFRML EPI LUMBAR/SACRAL 1 LEVEL [facility] [address] [place] [id number] Phone: tel: fax: Referral ID Status Reason Start Date Expiration Date Visits Re quested Visits Authorized [id number] 1 1 [facility] [id number] 14:04:50* Jorge Winkler MD - 09/26/2024 1:45 PM TELEPHONE INTERCEPTOR OPERATOR Images from the original note were not included. NEW CONSULT PATIENT NAME: Merna Hernandez MRN NUMBER: [id number] VISIT DATE: Thursday September 26, 2024 ASSESSMENT Diagnosis Plan1. Lumbar radiculitis 2. Herniated lumbar intervertebral disc 3. Facet arthritis of lumbosacral region Blood Thinners: None PLAN Pt not indicated Psych referral PT: yes, failed SURGERY: no MEDS:Opioids: opiods: NOT taking opiates Anti-epileptic drugs: Muscle Relaxant: NSAIDs (OTC or Rx): yes, failed Other: INJECTION HISTORY: no TODAY: Continue meds as deemed necessary per PCP Pt declined spine surgery consult Pt declined Physical therapy Topamax 50mg 1 PO q 12 #60 x 1 Procedure done today : LUMBAR: LEFT TF and IL: TF Transforaminal S1 CPT 87534 M54.16, M51.26 Risk, side effects and benefits discussed with pt stop all NSAIDs and ASA Explained of the procedure to be performed. Risks and side effects discussed with pt Patient aware of all side effects and complications related to procedure to be performed including infection, bleeding, trauma to an internal structure including the spinal cord, causing any form of paralysis to any of the 4 extremities, pneumothorax, dural puncture CLEMENTS, aseptic and septic meningitis or sudden seizures vs related to intravascular injection of particulate substances. Medications list that conflict with the procedure given. OPERATIVE REPORT PATIENT NAME: Merna Hernandez MRN NUMBER: [id number] DATE OF SURGERY: Thursday September 26, 2024 PREOPERATIVE DIAGNOSIS: HNP wo myelopathyLumbar radiculitis Lumbar DDD Chronic lbp Lumbar facet joint dz POSTOPERATIVE DIAGNOSIS: Same as Preoperative Diagnosis OPERATION PERFORMED: Transforaminal epidural steroid injection, left S1 X-RAY: Fluoroscopy, spine Epidurography ANESTHESIA: Local Anesthesia INDICATIONS: Severe leg pain, Failed to achieve pain relief through conservative medical management, and Decreased ability to perform activities of daily living, sleep, work, and enjoy quality of life. PROCEDURE IN DETAIL: The 54 y.o. male patient was consented and was placed on blood pressure andpulse oximetry monitor. With the patient positioned prone on the fluoroscopic table, the skin was prepped with proper surgical aseptic technique and draped. In the anteroposterior view, the levels to be injected were identified under fluoroscopy. The C-arm was oblique in the coronal plane until the facet joint was delineated, approximately 20 degrees. Lidocaine 1% 4 cc in a 1.25-inch 27-gauge needle was used for skin local anesthesia, injecting it through the skin and subcutaneous tissue under strict aspiration technique. Under fluoroscopic guidance, a 22-gauge, 3.5 inches spinal needle was advanced and directed towards 6 o'clock position of the pedicle. In the lateral view, ideal placement of the needle was obtained with the tip in the upper mid portion of neural foramen. In the anteroposterior plane and under continuous fluoroscopy, approximately 1 cc of non-ionic, water-soluble contrast was injected to visualize the nerve root /corresponding lateral recess and for safety to make sure there was no vascular uptake. After negative aspiration for blood, approximately 2 cc of a mixture of 80mg DepoMedrol and 0.2% of preservative-free ropivicaine was slowly injected at each level. The patient experienced no paresthesia during the injection. Shortly after completion of the injection procedures, the patient reported improvement of pain symptoms. The patient recovered uneventfully. The fluoroscopic image was saved for the patient's medical record. COMPLICATIONS: None BLOOD LOSS: None Dr Jorge Winkler Significant education provided today on diagnosis, conservative management options, injections, and when surgical consultation is indicated. Patient agrees with current plan and management options as described below. Recommend routine physical Continue bowel management Patient instructed to continue with home exercise program. Patient instructed to go to nearest ER if developed any sudden weakness in the extremities or sudden bowel and/or bladder incontinence. Pt's chart and history were reviewed; physical exam have been updated with no significant changes of the above chronic pain noted. Chief complaint or Subjective: Area of pain : lumbar pain, radicular to, left-sided, buttock, calf, and foot What is the duration of your pain? constantly Kind of pain (quality): sharp, burning, pressure-like, electric "shock"-like, throbbing, knife-like, shooting, and pins and needles What makes it worse? nothing, standing, walking, sitting, squatting, lyingdown, sneezing, driving, lifting, heat Do you have any - WEAKNESS LLE (Left Lower Extremity)NUMBNESS LLE (Left Lower Extremity) Changes in pattern of pain or weakness? No Current modalities for pain management: Rest Functional Status: Unable to function with daily activities Routine physical within the past year? YES HISTORY:Merna Hernandez is a male, with PMH of: Lumbar radiculitis and Lumbar degenerative disc disease Complaining of left sciatica x 6 months , with chronic intermittet muscle spasms, a chronic condition Denies any recent bowel or bladder incontinence or rentention, saddle paresthesia, or sexual dysfunction Denies fever, chills, unintentional weight loss or any associated constiutional changes. Denies any suicide thoughts or ideation. Conservative teatments including trial of PT, OTC analgesics, and non opioid medications without relief. has not been evaluated by surgeon (spine, ortho, or neurosurgeon) for consultation. Currently takes:opiods: NOT taking opiates max per day for pain relief. NSAIDs (OTC or Rx): yes, failed Patients are not exibiting side effects from listed medication(s) above.Patient maintains a bowel management regimen of fiber diet, OTC laxatives, or stool softeners. Medication enable pt to function with activities of daily living. As of this visit, pt has been compliant with pain medications with no apparent signs of abuse or misuse of opioid pain medication. 09/23/24 Ref per PCP for Pain Mgt evaluation Here for injection eval Mallory September 26, 2024 There has been no changes in patient's pain or baseline neurological status since last visit Patient pain has been under fair control with the current multidisciplinary regimen No adverse events caused by the pain medications prescribed or procedures performed No evidence of potential opiate misuse or abuse patient has been compliant with opiate program without any evidence of glenn rant opiate use behavior Patient able to function and perform ADLS with the aid of medication and other multidisciplinary modalities Here for his ARIA left S1 no changes Physical Exam: GENERAL: Not in acute distress, well developed, well nourished HEADNormocephalic, atraumatic Pupils: without miosis or mydriasis CERVICALwithin normal limits ROM Alignment: Blunted lordosis Trigger points: -- trapezius, splenius capitus, paraspinatus UPPER EXTREMITIESSensory: Normal C5-T1 dermatomes bilateral Tone: Normal; no muscle atrophy Reflexes: Normal C5, C6, C7 bilateral Motor: C5-T1 myotomes bilateral 5/5 SHOULDERROM: full, without pain (active or passive) Impingement: Absent Hawkin's: negative Supraspinatus stress test: negative WRIST/HAND Heberden's nodules: bilateral THORACIC/LUMBAR ROM decreased Alignment: Blunted lordosis Scoliosis: Absent Trigger points: absent Lumbar scar: none Facet joints tenderness: left Facet loading: left LOWER EXTREMITIESReflexes: 2+ Patella and ankle bilateral Tone: Normal; no muscle atrophy Edema: Absent Sensory: Dermatomes L2-S1 normal bilateral Motor: Myotomes L3-S1 bilateral 5/5 Straight Leg Raise: left HIP/PELVISROM: Full, internal rotation and external rotation Alignment: normal SACROILIAC JOINTPatrick's: -- PSIS tenderness: -- KNEE ROM: Full Swelling: none ANKLEROM: Full NEUROLOGICALGait: Antalgic PSYCH: Mood: agitation Pain behavior: pain behavior: none Diagnostic studies: Impression IMPRESSION:Disc extrusion displaces the descending left L5 nerve root in the L4-L5 subarticular zone. Additional mild degenerative changes at L3-L4 and L4-L5 as described above. Narrative MRI LUMBAR SPINE WITHOUT CONTRAST HISTORY: Low back pain, symptoms persist with > 6 wks treatment TECHNIQUE: Multiplanar multisequence MR images of the lumbar spine wereobtained without intravenous contrast. Unless otherwise specified, incidental findings do not require dedicated imaging follow-up. COMPARISON: Lumbar spine 3 views 09/16/2022 FINDINGS: For purposes of this dictation, it is assumed that there are 5 nonrib-bearing lumbar type vertebrae, and the most caudal fully segmented lumbar vertebra is labeled L5. The lumbar spine demonstrates normal alignment. Vertebral bodies are normal in height. There is a normal marrow signal pattern. The conus medullaris terminates at a normal level. The nerve roots of the cauda equina appear normal. The included paraspinal soft tissues and retroperitoneal structures are grossly normal. Evaluation of the individual levels: L1-2: Disc is normal in height and signal intensity. No significant spinalcanal or neural foraminal stenosis. L2-3: Disc is normal in height and signal intensity. No significant spinalcanal or neural foraminal stenosis. L3-4: Mild loss of disc height with fatty endplate changes. Circumferentialdisc bulge and facet hypertrophy result in mild right neural foraminal stenosis. No significant spinal canal or left neural foraminal stenosis. L4-5: Moderate loss of disc height. Circumferential disc bulge withsuperimposed 7 mm left paracentral disc protrusion and facet hypertrophy result in mild spinal canal and mild bilateral neural foraminal stenosis. Disc material displaces the descending left L5 nerve root in the subarticular zone. L5-S1: Disc is normal in height and signal intensity. No significant spinalcanal or neural foraminal stenosis. Images on Order [id number] Image Retrieve The full-size image has not yet been retrieved from an outside organization. To retrieve, click the link below. External Radiology and Imaging - Scan on 09/13/2024: MR LUMBAR SPINE W/O CONTRAST *The following may be discussed with patient based on pt's treatment plan: Opiate Risk Tool Scorin-3 Low risk: 6% change of developing problematic behaviors 4-7 Moderate risk: 28% change of developing problematic behaviors >=8 High risk: >90% change of developing problematic behaviors Goals of Therapy: Improve ambulation, quality of life, minimize medications, improve sleep pattern, increase level of activities, return to work, or improve ability to work. Patient understands their responsibility of their involvement to achieve the above goals, better quality of life, better function, and possible pain control. Patient also understands the nature of chronic pain and disease process. Options:Conservative options have been reviewed and discussed in detail. These include additional physical therapy, medication, exercise conditioning, and weight loss. Interventional treatment options include epidural steroid injections, sacroiliac injections, medial branch block, or radiofrequency ablation. The patient has decided to proceed with interventional injection therapy. We discussed the role of surgery consult as well. That decision was deferred at this time. Risks:Risks of conservative treatment were discussed and include progression of the underlying condition, including permanent or increased neurological sequelae. Risks of interventional injection treatment were also reviewed in detail and include , hemorrhage, infection, nerve damage, paralysis, recurrence, worsening or non-resolution of symptoms, dural tear, dural puncture headache, meningitis. No guarantees were given. Certain components of the symptoms may not resolve as a result of interventional injection therapy. Patient is aware that spinal injection with varies types of corticosteroids is not FDA approved. The patient agrees to proceed with this treatment recommendation. Counseling Given:The diagnosis, prognosis, treatment options, risks; alternatives were discussed in detail using language understandable to this patient. Questions have been elicited and all questions have been answered to the patients satisfaction in understandable terms. Realistic reassurance has been given to the patient regarding any fears or anxieties expressed today. Risks, benefits and options of recommended interventional procedures and proposed treatments were discussed. Preoperative instructions were reviewed including the use of anticoagulants. The patient was instructed to call if any change in medical status occurs, including infections which may necessitate schedule changes. Opiate Controlled Substance Therapy Requirements:Urine Drug Screen: Agree to submit to urine and/or blood screening tests to detect the use of non-prescribed medications, inappropriate pain medication, (including alcohol) or illicit drugs at any time. Psychology Clearance: Opiate controlled substance therapy for chronic pain represents a complex problem that may benefit from physical therapy, psychotherapy, and behavioral medicine strategies. Safety: Patient is aware that driving is prohibited while using opiate medications, muscle relaxants, antidepressants, or antiepileptics. Patients are prohibited to use any sedative hypnotics or sleeping aid, benzodiazepines or barbiturates while on medications from the pain clinic. Controlled substance medications should be in a locked, inaccessible to others, including children. The following was discussed with patients given opiate prescriptions: Narcan is used in people of all ages if opioid overdose happens or has possibly happened. (An opioid overdose occurs when someone accidentally or intentionally takes more opioid than their body can safely process.) Narcan is usually given by a caregiver or loved one if they think opioid overdose has occurred. After Narcan has been given, 911 or your local emergency number should be called right away. Administering Narcan is not a substitute for emergency medical care for opioid overdose. Medication therapy of opiate controlled substance, muscle relaxant, antidepressant, antiepileptic, benzodiazepine, tranquilizer, or sedative may cause: 1. Psychological dependence (addiction) to controlled substances that will require participation in any treatment program prescribed at facilities, which may include; - Detoxification and/or - Psychological, and medical treatment 2. multiple side effects include: - respiratory depression or failure that may lead to sudden . - intractable constipation that may cause bowel impaction or obstruction, which may require surgery. - urinary retention that may lead to renal problems - decrease of hormone levels with possible impotence, decreased libido, or sexual dysfunction. - Methadone or various antidepressants may cause heart arrhythmias that may lead to . - withdrawal symptoms such as, abdominal cramps, sweats, chills, generalized aching, and sudden . - sedation caused by medications: opiates (oral, patch, or infusion pump) muscle relaxants, anti-epileptic, benzodiazapines, antidepressants, sedatives, and/or tranquilizers, the drug miller supervisor, recommends not operating ANY machinery or ANY form of motorized equipment (this includes a motor vehicle). - sedation from medications may cause increase risk of falls which requires 24 hrs supervision when starting a new medication. - any other side effects that may require immediate ER medical attention. - Patient is aware the possible of developing seriotonin syndrome while being on various antidepressants or tramadol type medications which may lead to sudden . PHONE INTERCEPTOR OPERATOR [id number] 14:04:50 [place] [id number] 14:04:50 Diagnosis Lumbar radiculitis - Primary Herniated lumbar intervertebral disc Displacement of lumbar intervertebral disc without myelopathy Facet arthritis of lumbosacr al region [facility] [id number] 14:04:50 [place] [id number] 12:16:58* Auth/Cert (Routine) Specialty Diagnoses / Procedures Referred By Adelita humphreys Referred To Contact Diagnoses Chronic pain syndrome Procedures [place] OFFICE/OUTPATIENT [facility] 60 MINUTES [facility] [address] [place] [id number] Phone: tel: fax: Referral ID Status Reason Start Date Expiration Date Visits Re quested Visits Authorized [id number] 1 1 [facility] [id number] 12:16:58* Jorge Winkler MD - 09/23/2024 10:45 AM TELEPHONE INTERCEPTOR OPERATOR Images from the original note were not included. NEW CONSULT PATIENT NAME: Merna Hernandez MRN NUMBER: [id number] VISIT DATE: Monday September 23, 2024 ASSESSMENT Diagnosis Plan1. Lumbar radiculitis 2. Herniated lumbar intervertebral disc 3. Facet arthritis of lumbosacral region Blood Thinners: None PLAN Pt not indicated Psych referral PT: yes, failed SURGERY: no MEDS:Opioids: opiods: NOT taking opiates Anti-epileptic drugs: Muscle Relaxant: NSAIDs (OTC or Rx): yes, failed Other: INJECTION HISTORY: no TODAY: Continue meds as deemed necessary per PCP Pt declined spine surgery consult Pt declined Physical therapy Topamax 50mg 1 PO q 12 #60 x 1 Procedure authorization order: LUMBAR: LEFT TF and IL: TF Transforaminal S1 CPT 02054 M54.16, M51.26 Risk, side effects and benefits discussed with pt stop all NSAIDs and ASA Explained of the procedure to be performed. Risks and side effects discussed with pt Patient aware of all side effects and complications related to procedure to be performed including infection, bleeding, trauma to an internal structure including the spinal cord, causing any form of paralysis to any of the 4 extremities, pneumothorax, dural puncture CLEMENTS, aseptic and septic meningitis or sudden seizures vs related to intravascular injection of particulate substances. Medications list that conflict with the procedure given. Significant education provided today on diagnosis, conservative management options, injections, and when surgical consultation is indicated. Patient agrees with current plan and management options as described below. Recommend routine physical Continue bowel management Patient instructed to continue with home exercise program. Patient instructed to go to nearest ER if developed any sudden weakness in the extremities or sudden bowel and/or bladder incontinence. Pt's chart and history were reviewed; physical exam have been updated with no significant changes of the above chronic pain noted. Chief complaint or Subjective: Area of pain : lumbar pain, radicular to, left-sided, buttock, calf, and foot What is the duration of your pain? constantly Kind of pain (quality): sharp, burning, pressure-like, electric "shock"-like, throbbing, knife-like, shooting, and pins and needles What makes it worse? nothing, standing, walking, sitting, squatting, lyingdown, sneezing, driving, lifting, heat Do you have any - WEAKNESS LLE (Left Lower Extremity)NUMBNESS LLE (Left Lower Extremity) Changes in pattern of pain or weakness? No Current modalities for pain management: Rest Functional Status: Unable to function with daily activities Routine physical within the past year? YES HISTORY:Merna Hernandez is a male, with PMH of: Lumbar radiculitis and Lumbar degenerative disc disease Complaining of left sciatica x 6 months , with chronic intermittet muscle spasms, a chronic condition Denies any recent bowel or bladder incontinence or rentention, saddle paresthesia, or sexual dysfunction Denies fever, chills, unintentional weight loss or any associated constiutional changes. Denies any suicide thoughts or ideation. Conservative teatments including trial of PT, OTC analgesics, and non opioid medications without relief. has not been evaluated by surgeon (spine, ortho, or neurosurgeon) for consultation. Currently takes:opiods: NOT taking opiates max per day for pain relief. NSAIDs (OTC or Rx): yes, failed Patients are not exibiting side effects from listed medication(s) above.Patient maintains a bowel management regimen of fiber diet, OTC laxatives, or stool softeners. Medication enable pt to function with activities of daily living. As of this visit, pt has been compliant with pain medications with no apparent signs of abuse or misuse of opioid pain medication. HPIFriday September 23, 2024 Ref per PCP for Pain Mgt evaluation Here for injection eval Physical Exam: GENERAL: Not in acute distress, well developed, well nourished HEADNormocephalic, atraumatic Pupils: without miosis or mydriasis CERVICALwithin normal limits ROM Alignment: Blunted lordosis Trigger points: -- trapezius, splenius capitus, paraspinatus UPPER EXTREMITIESSensory: Normal C5-T1 dermatomes bilateral Tone: Normal; no muscle atrophy Reflexes: Normal C5, C6, C7 bilateral Motor: C5-T1 myotomes bilateral 5/5 SHOULDERROM: full, without pain (active or passive) Impingement: Absent Hawkin's: negative Supraspinatus stress test: negative WRIST/HAND Heberden's nodules: bilateral THORACIC/LUMBAR ROM decreased Alignment: Blunted lordosis Scoliosis: Absent Trigger points: absent Lumbar scar: none Facet joints tenderness: left Facet loading: left LOWER EXTREMITIESReflexes: 2+ Patella and ankle bilateral Tone: Normal; no muscle atrophy Edema: Absent Sensory: Dermatomes L2-S1 normal bilateral Motor: Myotomes L3-S1 bilateral 5/5 Straight Leg Raise: left HIP/PELVISROM: Full, internal rotation and external rotation Alignment: normal SACROILIAC JOINTPatrick's: -- PSIS tenderness: -- KNEE ROM: Full Swelling: none ANKLEROM: Full NEUROLOGICALGait: Antalgic PSYCH: Mood: agitation Pain behavior: pain behavior: none Diagnostic studies: Impression IMPRESSION:Disc extrusion displaces the descending left L5 nerve root in the L4-L5 subarticular zone. Additional mild degenerative changes at L3-L4 and L4-L5 as described above. Narrative MRI LUMBAR SPINE WITHOUT CONTRAST HISTORY: Low back pain, symptoms persist with > 6 wks treatment TECHNIQUE: Multiplanar multisequence MR images of the lumbar spine wereobtained without intravenous contrast. Unless otherwise specified, incidental findings do not require dedicated imaging follow-up. COMPARISON: Lumbar spine 3 views 09/16/2022 FINDINGS: For purposes of this dictation, it is assumed that there are 5 nonrib-bearing lumbar type vertebrae, and the most caudal fully segmented lumbar vertebra is labeled L5. The lumbar spine demonstrates normal alignment. Vertebral bodies are normal in height. There is a normal marrow signal pattern. The conus medullaris terminates at a normal level. The nerve roots of the cauda equina appear normal. The included paraspinal soft tissues and retroperitoneal structures are grossly normal. Evaluation of the individual levels: L1-2: Disc is normal in height and signal intensity. No significant spinalcanal or neural foraminal stenosis. L2-3: Disc is normal in height and signal intensity. No significant spinalcanal or neural foraminal stenosis. L3-4: Mild loss of disc height with fatty endplate changes. Circumferentialdisc bulge and facet hypertrophy result in mild right neural foraminal stenosis. No significant spinal canal or left neural foraminal stenosis. L4-5: Moderate loss of disc height. Circumferential disc bulge withsuperimposed 7 mm left paracentral disc protrusion and facet hypertrophy result in mild spinal canal and mild bilateral neural foraminal stenosis. Disc material displaces the descending left L5 nerve root in the subarticular zone. L5-S1: Disc is normal in height and signal intensity. No significant spinalcanal or neural foraminal stenosis. Images on Order [id number] Image Retrieve The full-size image has not yet been retrieved from an outside organization. To retrieve, click the link below. External Radiology and Imaging - Scan on 09/13/2024: MR LUMBAR SPINE W/O CONTRAST *The following may be discussed with patient based on pt's treatment plan: Opiate Risk Tool Scorin-3 Low risk: 6% change of developing problematic behaviors 4-7 Moderate risk: 28% change of developing problematic behaviors >=8 High risk: >90% change of developing problematic behaviors Goals of Therapy: Improve ambulation, quality of life, minimize medications, improve sleep pattern, increase level of activities, return to work, or improve ability to work. Patient understands their responsibility of their involvement to achieve the above goals, better quality of life, better function, and possible pain control. Patient also understands the nature of chronic pain and disease process. Options:Conservative options have been reviewed and discussed in detail. These include additional physical therapy, medication, exercise conditioning, and weight loss. Interventional treatment options include epidural steroid injections, sacroiliac injections, medial branch block, or radiofrequency ablation. The patient has decided to proceed with interventional injection therapy. We discussed the role of surgery consult as well. That decision was deferred at this time. Risks:Risks of conservative treatment were discussed and include progression of the underlying condition, including permanent or increased neurological sequelae. Risks of interventional injection treatment were also reviewed in detail and include , hemorrhage, infection, nerve damage, paralysis, recurrence, worsening or non-resolution of symptoms, dural tear, dural puncture headache, meningitis. No guarantees were given. Certain components of the symptoms may not resolve as a result of interventional injection therapy. Patient is aware that spinal injection with varies types of corticosteroids is not FDA approved. The patient agrees to proceed with this treatment recommendation. Counseling Given:The diagnosis, prognosis, treatment options, risks; alternatives were discussed in detail using language understandable to this patient. Questions have been elicited and all questions have been answered to the patients satisfaction in understandable terms. Realistic reassurance has been given to the patient regarding any fears or anxieties expressed today. Risks, benefits and options of recommended interventional procedures and proposed treatments were discussed. Preoperative instructions were reviewed including the use of anticoagulants. The patient was instructed to call if any change in medical status occurs, including infections which may necessitate schedule changes. Opiate Controlled Substance Therapy Requirements:Urine Drug Screen: Agree to submit to urine and/or blood screening tests to detect the use of non-prescribed medications, inappropriate pain medication, (including alcohol) or illicit drugs at any time. Psychology Clearance: Opiate controlled substance therapy for chronic pain represents a complex problem that may benefit from physical therapy, psychotherapy, and behavioral medicine strategies. Safety: Patient is aware that driving is prohibited while using opiate medications, muscle relaxants, antidepressants, or antiepileptics. Patients are prohibited to use any sedative hypnotics or sleeping aid, benzodiazepines or barbiturates while on medications from the pain clinic. Controlled substance medications should be in a locked, inaccessible to others, including children. The following was discussed with patients given opiate prescriptions: Narcan is used in people of all ages if opioid overdose happens or has possibly happened. (An opioid overdose occurs when someone accidentally or intentionally takes more opioid than their body can safely process.) Narcan is usually given by a caregiver or loved one if they think opioid overdose has occurred. After Narcan has been given, 911 or your local emergency number should be called right away. Administering Narcan is not a substitute for emergency medical care for opioid overdose. Medication therapy of opiate controlled substance, muscle relaxant, antidepressant, antiepileptic, benzodiazepine, tranquilizer, or sedative may cause: 1. Psychological dependence (addiction) to controlled substances that will require participation in any treatment program prescribed at facilities, which may include; - Detoxification and/or - Psychological, and medical treatment 2. multiple side effects include: - respiratory depression or failure that may lead to sudden . - intractable constipation that may cause bowel impaction or obstruction, which may require surgery. - urinary retention that may lead to renal problems - decrease of hormone levels with possible impotence, decreased libido, or sexual dysfunction. - Methadone or various antidepressants may cause heart arrhythmias that may lead to . - withdrawal symptoms such as, abdominal cramps, sweats, chills, generalized aching, and sudden . - sedation caused by medications: opiates (oral, patch, or infusion pump) muscle relaxants, anti-epileptic, benzodiazapines, antidepressants, sedatives, and/or tranquilizers, the drug miller supervisor, recommends not operating ANY machinery or ANY form of motorized equipment (this includes a motor vehicle). - sedation from medications may cause increase risk of falls which requires 24 hrs supervision when starting a new medication. - any other side effects that may require immediate ER medical attention. - Patient is aware the possible of developing seriotonin syndrome while being on various antidepressants or tramadol type medications which may lead to sudden . [facility] Cuiuvtg7241-10-27 12:16:58 [facility]oyzmf4478-19-24 12:16:58 Diagnosis Lumbar radiculitis - Primary Herniated lumbar intervertebral disc Displacement of lumbar intervertebral disc without myelopathy Facet arthritis of lumbosacr al region [facility] HospitalMjprlox2865-53-40 12:16:58 [facility] HospitalQnkrxkv5297-55-63 12:16:58* Auth/Cert (Routine) Specialty Diagnoses / Procedures Referred By Contac t Referred To Contact Diagnoses Chronic pain syndrome Procedures [place] OFFICE/OUTPATIENT [facility] 60 MINUTES [facility] [address] [place] [address] [place] [address] Phone: tel: fax: Referral ID Status Reason Start Date Expiration Date Visits Re quested Visits Authorized [id number] 1 1 [facility] [id number] 12:16:58* Jorge Winkler MD - 09/23/2024 10:45 AM TELEPHONE INTERCEPTOR OPERATOR Images from the original note were not included. NEW CONSULT PATIENT NAME: Merna Hernandez MRN NUMBER: [id number] VISIT DATE: Monday September 23, 2024 ASSESSMENT Diagnosis Plan1. Lumbar radiculitis 2. Herniated lumbar intervertebral disc 3. Facet arthritis of lumbosacral region Blood Thinners: None PLAN Pt not indicated Psych referral PT: yes, failed SURGERY: no MEDS:Opioids: opiods: NOT taking opiates Anti-epileptic drugs: Muscle Relaxant: NSAIDs (OTC or Rx): yes, failed Other: INJECTION HISTORY: no TODAY: Continue meds as deemed necessary per PCP Pt declined spine surgery consult Pt declined Physical therapy Topamax 50mg 1 PO q 12 #60 x 1 Procedure authorization order: LUMBAR: LEFT TF and IL: TF Transforaminal S1 CPT 35759 M54.16, M51.26 Risk, side effects and benefits discussed with pt stop all NSAIDs and ASA Explained of the procedure to be performed. Risks and side effects discussed with pt Patient aware of all side effects and complications related to procedure to be performed including infection, bleeding, trauma to an internal structure including the spinal cord, causing any form of paralysis to any of the 4 extremities, pneumothorax, dural puncture CLEMENTS, aseptic and septic meningitis or sudden seizures vs related to intravascular injection of particulate substances. Medications list that conflict with the procedure given. Significant education provided today on diagnosis, conservative management options, injections, and when surgical consultation is indicated. Patient agrees with current plan and management options as described below. Recommend routine physical Continue bowel management Patient instructed to continue with home exercise program. Patient instructed to go to nearest ER if developed any sudden weakness in the extremities or sudden bowel and/or bladder incontinence. Pt's chart and history were reviewed; physical exam have been updated with no significant changes of the above chronic pain noted. Chief complaint or Subjective: Area of pain : lumbar pain, radicular to, left-sided, buttock, calf, and foot What is the duration of your pain? constantly Kind of pain (quality): sharp, burning, pressure-like, electric "shock"-like, throbbing, knife-like, shooting, and pins and needles What makes it worse? nothing, standing, walking, sitting, squatting, lyingdown, sneezing, driving, lifting, heat Do you have any - WEAKNESS LLE (Left Lower Extremity)NUMBNESS LLE (Left Lower Extremity) Changes in pattern of pain or weakness? No Current modalities for pain management: Rest Functional Status: Unable to function with daily activities Routine physical within the past year? YES HISTORY:Merna Hernandez is a male, with PMH of: Lumbar radiculitis and Lumbar degenerative disc disease Complaining of left sciatica x 6 months , with chronic intermittet muscle spasms, a chronic condition Denies any recent bowel or bladder incontinence or rentention, saddle paresthesia, or sexual dysfunction Denies fever, chills, unintentional weight loss or any associated constiutional changes. Denies any suicide thoughts or ideation. Conservative teatments including trial of PT, OTC analgesics, and non opioid medications without relief. has not been evaluated by surgeon (spine, ortho, or neurosurgeon) for consultation. Currently takes:opiods: NOT taking opiates max per day for pain relief. NSAIDs (OTC or Rx): yes, failed Patients are not exibiting side effects from listed medication(s) above.Patient maintains a bowel management regimen of fiber diet, OTC laxatives, or stool softeners. Medication enable pt to function with activities of daily living. As of this visit, pt has been compliant with pain medications with no apparent signs of abuse or misuse of opioid pain medication. HPIFriday September 23, 2024 Ref per PCP for Pain Mgt evaluation Here for injection eval Physical Exam: GENERAL: Not in acute distress, well developed, well nourished HEADNormocephalic, atraumatic Pupils: without miosis or mydriasis CERVICALwithin normal limits ROM Alignment: Blunted lordosis Trigger points: -- trapezius, splenius capitus, paraspinatus UPPER EXTREMITIESSensory: Normal C5-T1 dermatomes bilateral Tone: Normal; no muscle atrophy Reflexes: Normal C5, C6, C7 bilateral Motor: C5-T1 myotomes bilateral 5/5 SHOULDERROM: full, without pain (active or passive) Impingement: Absent Hawkin's: negative Supraspinatus stress test: negative WRIST/HAND Heberden's nodules: bilateral THORACIC/LUMBAR ROM decreased Alignment: Blunted lordosis Scoliosis: Absent Trigger points: absent Lumbar scar: none Facet joints tenderness: left Facet loading: left LOWER EXTREMITIESReflexes: 2+ Patella and ankle bilateral Tone: Normal; no muscle atrophy Edema: Absent Sensory: Dermatomes L2-S1 normal bilateral Motor: Myotomes L3-S1 bilateral 5/5 Straight Leg Raise: left HIP/PELVISROM: Full, internal rotation and external rotation Alignment: normal SACROILIAC JOINTPatrick's: -- PSIS tenderness: -- KNEE ROM: Full Swelling: none ANKLEROM: Full NEUROLOGICALGait: Antalgic PSYCH: Mood: agitation Pain behavior: pain behavior: none Diagnostic studies: Impression IMPRESSION:Disc extrusion displaces the descending left L5 nerve root in the L4-L5 subarticular zone. Additional mild degenerative changes at L3-L4 and L4-L5 as described above. Narrative MRI LUMBAR SPINE WITHOUT CONTRAST HISTORY: Low back pain, symptoms persist with > 6 wks treatment TECHNIQUE: Multiplanar multisequence MR images of the lumbar spine wereobtained without intravenous contrast. Unless otherwise specified, incidental findings do not require dedicated imaging follow-up. COMPARISON: Lumbar spine 3 views 09/16/2022 FINDINGS: For purposes of this dictation, it is assumed that there are 5 nonrib-bearing lumbar type vertebrae, and the most caudal fully segmented lumbar vertebra is labeled L5. The lumbar spine demonstrates normal alignment. Vertebral bodies are normal in height. There is a normal marrow signal pattern. The conus medullaris terminates at a normal level. The nerve roots of the cauda equina appear normal. The included paraspinal soft tissues and retroperitoneal structures are grossly normal. Evaluation of the individual levels: L1-2: Disc is normal in height and signal intensity. No significant spinalcanal or neural foraminal stenosis. L2-3: Disc is normal in height and signal intensity. No significant spinalcanal or neural foraminal stenosis. L3-4: Mild loss of disc height with fatty endplate changes. Circumferentialdisc bulge and facet hypertrophy result in mild right neural foraminal stenosis. No significant spinal canal or left neural foraminal stenosis. L4-5: Moderate loss of disc height. Circumferential disc bulge withsuperimposed 7 mm left paracentral disc protrusion and facet hypertrophy result in mild spinal canal and mild bilateral neural foraminal stenosis. Disc material displaces the descending left L5 nerve root in the subarticular zone. L5-S1: Disc is normal in height and signal intensity. No significant spinalcanal or neural foraminal stenosis. Images on Order [id number] Image Retrieve The full-size image has not yet been retrieved from an outside organization. To retrieve, click the link below. External Radiology and Imaging - Scan on 09/13/2024: MR LUMBAR SPINE W/O CONTRAST *The following may be discussed with patient based on pt's treatment plan: Opiate Risk Tool Scorin-3 Low risk: 6% change of developing problematic behaviors 4-7 Moderate risk: 28% change of developing problematic behaviors >=8 High risk: >90% change of developing problematic behaviors Goals of Therapy: Improve ambulation, quality of life, minimize medications, improve sleep pattern, increase level of activities, return to work, or improve ability to work. Patient understands their responsibility of their involvement to achieve the above goals, better quality of life, better function, and possible pain control. Patient also understands the nature of chronic pain and disease process. Options:Conservative options have been reviewed and discussed in detail. These include additional physical therapy, medication, exercise conditioning, and weight loss. Interventional treatment options include epidural steroid injections, sacroiliac injections, medial branch block, or radiofrequency ablation. The patient has decided to proceed with interventional injection therapy. We discussed the role of surgery consult as well. That decision was deferred at this time. Risks:Risks of conservative treatment were discussed and include progression of the underlying condition, including permanent or increased neurological sequelae. Risks of interventional injection treatment were also reviewed in detail and include , hemorrhage, infection, nerve damage, paralysis, recurrence, worsening or non-resolution of symptoms, dural tear, dural puncture headache, meningitis. No guarantees were given. Certain components of the symptoms may not resolve as a result of interventional injection therapy. Patient is aware that spinal injection with varies types of corticosteroids is not FDA approved. The patient agrees to proceed with this treatment recommendation. Counseling Given:The diagnosis, prognosis, treatment options, risks; alternatives were discussed in detail using language understandable to this patient. Questions have been elicited and all questions have been answered to the patients satisfaction in understandable terms. Realistic reassurance has been given to the patient regarding any fears or anxieties expressed today. Risks, benefits and options of recommended interventional procedures and proposed treatments were discussed. Preoperative instructions were reviewed including the use of anticoagulants. The patient was instructed to call if any change in medical status occurs, including infections which may necessitate schedule changes. Opiate Controlled Substance Therapy Requirements:Urine Drug Screen: Agree to submit to urine and/or blood screening tests to detect the use of non-prescribed medications, inappropriate pain medication, (including alcohol) or illicit drugs at any time. Psychology Clearance: Opiate controlled substance therapy for chronic pain represents a complex problem that may benefit from physical therapy, psychotherapy, and behavioral medicine strategies. Safety: Patient is aware that driving is prohibited while using opiate medications, muscle relaxants, antidepressants, or antiepileptics. Patients are prohibited to use any sedative hypnotics or sleeping aid, benzodiazepines or barbiturates while on medications from the pain clinic. Controlled substance medications should be in a locked, inaccessible to others, including children. The following was discussed with patients given opiate prescriptions: Narcan is used in people of all ages if opioid overdose happens or has possibly happened. (An opioid overdose occurs when someone accidentally or intentionally takes more opioid than their body can safely process.) Narcan is usually given by a caregiver or loved one if they think opioid overdose has occurred. After Narcan has been given, 911 or your local emergency number should be called right away. Administering Narcan is not a substitute for emergency medical care for opioid overdose. Medication therapy of opiate controlled substance, muscle relaxant, antidepressant, antiepileptic, benzodiazepine, tranquilizer, or sedative may cause: 1. Psychological dependence (addiction) to controlled substances that will require participation in any treatment program prescribed at facilities, which may include; - Detoxification and/or - Psychological, and medical treatment 2. multiple side effects include: - respiratory depression or failure that may lead to sudden . - intractable constipation that may cause bowel impaction or obstruction, which may require surgery. - urinary retention that may lead to renal problems - decrease of hormone levels with possible impotence, decreased libido, or sexual dysfunction. - Methadone or various antidepressants may cause heart arrhythmias that may lead to . - withdrawal symptoms such as, abdominal cramps, sweats, chills, generalized aching, and sudden . - sedation caused by medications: opiates (oral, patch, or infusion pump) muscle relaxants, anti-epileptic, benzodiazapines, antidepressants, sedatives, and/or tranquilizers, the drug miller supervisor, recommends not operating ANY machinery or ANY form of motorized equipment (this includes a motor vehicle). - sedation from medications may cause increase risk of falls which requires 24 hrs supervision when starting a new medication. - any other side effects that may require immediate ER medical attention. - Patient is aware the possible of developing seriotonin syndrome while being on various antidepressants or tramadol type medications which may lead to sudden . 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 Patient reported medication not working CARLOS Rowell [id number] 08:07:51 Chief Complaint Patient presents with Back Pain Down left leg CARLOS Rowell [id number] 10:38:00 Chief Complaint Patient presents with Kidney Problem Went to Urgent care for back pain on 06/28/24. He has a Kidney stone Zamzam Eid LVN . [facility]2024-01-10 15:00:20 Chief Complaint Patient presents with Establish Care Possible UTI Mehnaz NGUYEN [facility]
[2024-10-24] MEDS ORDERED: KETOROLAC 30 MG/ML INJ ONE (00:37)
[2024-10-24] MEDS ORDERED: methocarbamoL 750 MG TAB ONE (00:37)
[2024-10-24] MEDS ORDERED: predniSONE 20 MG TAB ONE (00:37)
[2024-10-24] MEDS ORDERED: PROMETHAZINE 25 MG TABLET ONE (00:37)
[2024-10-24] MEDS ORDERED: TRAMADOL HCL 50 MG TAB ONE (00:37)
--- NOTE | 2024-10-24 01:27 | ER ---
Nurse's Notes [facility] Name: Merna Hernandez Age: 54 yrs Sex: Male : 1970 Arrival Date: 10/24/2024 Time: 00:02 Bed 5 Private MD: Monster Radford Diagnosis: Lumbago with sciatica, left side;Sciatica, left side Presentation: 10/24 00:16 Chief complaint: Patient states: I have severe sciatica pain on right side.left side bm8 neck pain and back pain. the whole problem started 4 months ago but in the last two days pain has become most intense. Coronavirus screen: At this time, the client does not indicate any symptoms associated with coronavirus-19. Ebola Screen: Patient negative for fever greater than or equal to 101.5 degrees Fahrenheit, and additional compatible Ebola Virus Disease symptoms Patient denies exposure to infectious person. Patient denies travel to an Ebola-affected area in the 21 days before illness onset. No symptoms or risks identified at this time. Acute neurological deficit: none identified. Initial Sepsis Screen: Does the patient meet any 2 criteria? No. Patient's initial sepsis screen is negative. Does the patient have a suspected source of infection? No. Patient's initial sepsis screen is negative. Risk Assessment: Do you want to hurt yourself or someone else? Patient reports no desire to harm self or others. Onset of symptoms was October 22, 2024. 00:16 Method Of Arrival: Wheelchair bm8 00:16 Acuity: ARIA 3 bm8 Triage Assessment: 00:18 General: Appears in no apparent distress. uncomfortable, Behavior is calm, cooperative, bm8 appropriate for age. Pain: Complains of pain in scalp, posterior cervical area, left trapezius and right leg Pain currently is 9 out of 10 on a pain scale. EENT: No signs and/or symptoms were reported regarding the EENT system. Neuro: No deficits noted. Level of Consciousness is awake, alert, obeys commands, Oriented to person, place, time, situation, Appropriate for age. Cardiovascular: Denies chest pain, Capillary refill < 3 seconds in bilateral fingers Patient's skin is warm and dry. Respiratory: Airway is patent Respiratory effort is even, unlabored. GI: No signs and/or symptoms were reported involving the gastrointestinal system. : No signs and/or symptoms were reported regarding the genitourinary system. Derm: No signs and/or symptoms reported regarding the dermatologic system. Musculoskeletal: Circulation, motion, and sensation intact. Capillary refill < 3 seconds, Range of motion: intact in all extremities, Reports pain in back and right leg Pain is 9 out of 10 on a pain scale. Historical: - Allergies: 00:18 No Known Allergies; bm8 - Home Meds: 00:18 gabapentin 600 mg oral tablet 1 tab 2 times per day [Active]; bm8 - PMHx: 00:18 sciatica nerve pain; kidney stone; bm8 - PSHx: 00:18 None; bm8 - Immunization history:: Adult Immunizations up to date. - Infectious Disease History:: Denies. - Social history:: Smoking status: Patient denies any tobacco usage or history of. - Family history:: not pertinent. Screenin:21 [facility] ED Fall Risk Assessment (Adult) History of falling in the last 3 months, bm8 including since admission No falls in past 3 months (0 pts) Confusion or Disorientation No (0 pts) Intoxicated or Sedated No (0 pts) Impaired Gait Yes (1 pt) Mobility Assist Device Used Yes (1 pt) Altered Elimination No (0 pt) Score/Fall Risk Level 0 - 2 = Low Risk Oriented to surroundings, Maintained a safe environment, Educated pt \T\ family on fall prevention, incl call for assistance when getting out of bed, Assessed \T\ reinforced patient's understanding of fall precautions, Hourly rounding (assess needs \T\ fall precautionary measures) done, Used ambulatory aids as needed (educated on \T\ assisted with), Used gait belt as appropriate. Abuse screen: Denies threats or abuse. Nutritional screening: No deficits noted. Tuberculosis screening: No symptoms or risk factors identified. 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 bm8 01:33 Reassessment: Patient appears in no apparent distress at this time. Patient and/or bm8 family updated on plan of care and expected duration. Pain level reassessed. Patient is alert, oriented x 3, equal unlabored respirations, skin warm/dry/pink. Patient states symptoms have improved. Pain: Pain currently is 6 out of 10 on a pain scale. Neuro: No deficits noted. Vital Signs: 00:16 BP 123 / 84; Pulse 95; Resp 18; Temp 98.2; Pulse Ox 97% ; Weight 88.9 kg; Height 5 ft. bm8 8 in. ; Pain 9/10; 01:33 BP 127 / 84; Pulse 87; Resp 18; Temp 98.2; Pulse Ox 100% ; Pain 6/10; bm8 00:16 Body Mass Index 29.80 (88.90 kg, 172.72 cm) bm8 00:16 Pain Scale: Adult bm8 01:33 Pain Scale: Adult bm8 Lula Coma Score: 00:21 Eye Response: spontaneous(4). Motor Response: obeys commands(6). Verbal Response: bm8 oriented(5). Total: 15. 01:33 Eye Response: spontaneous(4). Motor Response: obeys commands(6). Verbal Response: bm8 oriented(5). Total: 15. 21:41 Eye Response: spontaneous(4). Motor Response: obeys commands(6). Verbal Response: sp4 oriented(5). Total: 15. ED Course: 00:09 Patient arrived in ED. gm2 00:10 Monster Radford DO is Private Physician. gm2 00:12 Patricio Carranza MD is Attending Physician. sp4 00:16 Pasha Pereira, JAMES is Primary Nurse. bm8 00:18 Triage completed. bm8 00:18 Arm band placed on right wrist. bm8 00:21 Patient has correct armband on for positive identification. Bed in low position. Call bm8 light in reach. Side rails up X 1. Adult w/ patient. Client placed on continuous cardiac and pulse oximetry monitoring. NIBP monitoring applied. Pulse ox on. NIBP on. Door closed. Noise minimized. Verbal reassurance given. Head of bed elevated. 00:21 No provider procedures requiring assistance completed. Patient maintains SpO2 bm8 saturation greater than 95% on room air. 01:25 Sunny Rosas MD is Referral Physician. sp4 01:33 Provided Education on: post er care. bm8 01:33 Patient did not have IV access during this emergency room visit. bm8 Administered Medications: 00:46 Drug: traMADol PO 100 mg PO once Route: PO; bm8 01:32 Follow up: Response: No adverse reaction bm8 00:46 Drug: Methocarbamol PO 1500 mg PO once Route: PO; bm8 01:32 Follow up: Response: No adverse reaction bm8 00:46 Drug: Promethazine PO 25 mg PO once Route: PO; bm8 01:32 Follow up: Response: No adverse reaction bm8 00:47 Drug: Ketorolac IM 60 mg IM once Route: IM; Site: right gluteus; bm8 01:32 Follow up: Response: No adverse reaction bm8 00:47 Drug: predniSONE PO 60 mg PO once Route: PO; bm8 01:32 Follow up: Response: No adverse reaction bm8 Medication: 00:21 VIS not applicable for this client. bm8 Outcome: 01:27 Discharge ordered by . sp4 01:33 Discharged to home ambulatory, with family, bm8 01:33 Condition: stable 01:33 Discharge instructions given to patient, family, Instructed on discharge instructions, follow up and referral plans. no drinking with medication, no driving heavy equipment, medication usage, safety practices, Demonstrated understanding of instructions, follow-up care, medications, Prescriptions given X 4, 01:34 Patient left the ED. bm8 Signatures: Patricio Carranza MD MD sp4 Sabina Conroy gm2 Pasha Pereira, RN RN bm8 Corrections: (The following items were deleted from the chart) 00:20 00:18 PMHx: None; bm8 bm8
--- NOTE | 2024-10-24 01:28 | EDPHYS ---
Physician Documentation [facility] Name: Merna Hernandez Age: 54 yrs Sex: Male : 1970 Arrival Date: 10/24/2024 Time: 00:02 Bed 5 Private MD: Monster Radford ED Physician Patricio Carranza HPI: 10/24 00:12 This 54 yrs old Male presents to ER via Unassigned with complaints of sp4 Leg Pain, Neck Problem, Back Pain. 21:41 Patient presents for other chronic pain left buttock and left lower extremity also sp4 associated pain neck and back. Patient states pain has intensified in the last 24 hours. Patient states he cannot sleep at home secondary to pain in the left buttock. . Historical: - Allergies: 00:18 No Known Allergies; bm8 - Home Meds: 00:18 gabapentin 600 mg oral tablet 1 tab 2 times per day [Active]; bm8 - PMHx: 00:18 sciatica nerve pain; kidney stone; bm8 - PSHx: 00:18 None; bm8 - Immunization history:: Adult Immunizations up to date. - Infectious Disease History:: Denies. - Social history:: Smoking status: Patient denies any tobacco usage or history of. - Family history:: not pertinent. ROS: 21:41 Constitutional: Negative for fever, chills, and weight loss, positive left hip and sp4 buttock pain , positive left lower extremity pain , positive neck and back pain 21:41 All other systems are negative, Exam: 21:41 Constitutional: This is a well developed, well nourished patient who is awake, alert, sp4 and in no acute distress. Head/Face: Normocephalic, atraumatic. Eyes: Pupils equal round and reactive to light, extra-ocular motions intact. Lids and lashes normal. Conjunctiva and sclera are not injected. Cornea within normal limits. Periorbital areas with no swelling, redness, or edema. ENT: Nares patent. No nasal discharge, no septal abnormalities noted. Tympanic membranes are normal and external auditory canals are clear. Oropharynx with no redness, swelling, or masses, exudates, or evidence of obstruction, uvula midline. Mucous membranes moist. Neck: Trachea midline, no thyromegaly or masses palpated, and no cervical lymphadenopathy. Supple, full range of motion without nuchal rigidity, or vertebral point tenderness. Chest/axilla: Normal chest wall appearance and motion. Nontender with no deformity. No lesions are appreciated. Cardiovascular: Regular rate and rhythm with a normal S1 and S2. No gallops, murmurs, or rubs. Normal PMI, no JVD. No pulse deficits. Respiratory: Lungs have equal breath sounds bilaterally, clear to auscultation and percussion. No rales, rhonchi or wheezes noted. No increased work of breathing, no retractions or nasal flaring. Abdomen/GI: Soft, with normal bowel sounds. No distension or tympany. No guarding or rebound. No evidence of tenderness throughout. Back: No spinal tenderness. No costovertebral tenderness. Skin: Warm, dry with normal turgor. Normal color with no rashes, no lesions, and no evidence of cellulitis. MS/ Extremity: Pulses equal, no cyanosis. Neurovascular intact. Full, normal range of motion. Neuro: Awake and alert, GCS 15, oriented to person, place, time, and situation. Cranial nerves II-XII grossly intact. Motor strength 5/5 in all extremities. Sensory grossly intact. Psych: Awake, alert, with orientation to person, place and time. Behavior, mood, and affect are within normal limits Vital Signs: 00:16 BP 123 / 84; Pulse 95; Resp 18; Temp 98.2; Pulse Ox 97% ; Weight 88.9 kg; Height 5 ft. bm8 8 in. ; Pain 9/10; 01:33 BP 127 / 84; Pulse 87; Resp 18; Temp 98.2; Pulse Ox 100% ; Pain 6/10; bm8 00:16 Body Mass Index 29.80 (88.90 kg, 172.72 cm) bm8 00:16 Pain Scale: Adult bm8 01:33 Pain Scale: Adult bm8 [place]art Coma Score: 00:21 Eye Response: spontaneous(4). Motor Response: obeys commands(6). Verbal Response: bm8 oriented(5). Total: 15. 01:33 Eye Response: spontaneous(4). Motor Response: obeys commands(6). Verbal Response: bm8 oriented(5). Total: 15. 21:41 Eye Response: spontaneous(4). Motor Response: obeys commands(6). Verbal Response: sp4 oriented(5). Total: 15. MDM: 00:13 Medical Screening Exam initiated sp4 21:43 Differential diagnosis: dislocation, open fracture, closed fracture, contusion, sp4 abrasion, tendonitis. Data reviewed: vital signs, nurses notes, old medical records. Consideration of Admission/Observation Escalation of care including admission/observation considered. ED course: Exam is consistent with sciatica. Patient stable for discharge home with as needed pain medications. Patient was referred to Dr. Rey a local neurosurgeon.. 10/24 00:53 Order name: Glucose, Ancillary Testing; Complete Time: 01:21 EDMS 10/24 00:32 Order name: Accucheck Blood Glucose; Complete Time: 00:46 sp4 Administered Medications: 00:46 Drug: traMADol PO 100 mg PO once Route: PO; bm8 01:32 Follow up: Response: No adverse reaction bm8 00:46 Drug: Methocarbamol PO 1500 mg PO once Route: PO; bm8 01:32 Follow up: Response: No adverse reaction bm8 00:46 Drug: Promethazine PO 25 mg PO once Route: PO; bm8 01:32 Follow up: Response: No adverse reaction bm8 00:47 Drug: Ketorolac IM 60 mg IM once Route: IM; Site: right gluteus; bm8 01:32 Follow up: Response: No adverse reaction bm8 00:47 Drug: predniSONE PO 60 mg PO once Route: PO; bm8 01:32 Follow up: Response: No adverse reaction bm8 Disposition Summary: 10/24/24 01:27 Discharge Ordered Notes: Location: Home sp4 Problem: new sp4 Symptoms: have improved sp4 Condition: Stable sp4 Diagnosis - Lumbago with sciatica, left side sp4 - Sciatica, left side sp4 Followup: sp4 - With: Sunny Rosas MD - When: 7 - 10 days - Reason: Recheck today's complaints Discharge Instructions: - Discharge Summary Sheet sp4 - Sciatica sp4 Forms: - Patient Portal Instructions sp4 Prescriptions: - Ibuprofen 800 mg Oral Tablet - take 1 tablet ORAL route every 8 hours As needed take with food; 30 tablet; sp4 Refills: 0, Product Selection Permitted - Tramadol 50 mg Oral tablet - take 1 tablet ORAL route every 8 hours as needed; 20 tablet; Refills: 0, sp4 Product Selection Permitted - Prednisone 20 mg Oral Tablet - take 2 tablets ORAL route once daily for 5 days; 10 tablet; Refills: 0, Product sp4 Selection Permitted - methocarbamol 750 mg Oral tablet - take 2 tablets ORAL route every 8 hours for 10 days; 60 tablet; Refills: 0, sp4 Product Selection Permitted Signatures: Patricio Carranza MD MD sp4 Pasha Pereira RN RN bm8 Corrections: (The following items were deleted from the chart) 00:20 00:18 PMHx: None; bm8 bm8
[2024-10-24 01:39] VITALS: TEMP 98.2
[2024-10-24 01:40] VITALS: BP 127/84; O2SAT 100
== END 2024-10-24 01:34 | disposition home or self-care (01) ==
LOC: ER 00:02
DX: M54.42 Lumbago with sciatica, left side (principal)
CPT/HCPCS: 82947; 96372; 99284; Q0169; J7512